=== PATIENT | male | born 1945 | race Caucasian/White ===

== ENCOUNTER 2018-08-06 23:03 | Inpatient (IN) ==
[2018-08-06] MEDS ORDERED: Amiodarone Premix 150 MG/100 ML BAG IVPB ONE ×2 (23:11→23:16)
[2018-08-06] MEDS ORDERED: Amiodarone Premix 360 MG/200 ML BAG IVC ONE ×2 (23:14→23:16)
--- NOTE | 2018-08-06 23:20 | Emergency Department Note ---
Disposition Clinical Impression: Ventricular tachycardia Chest pain Qualifiers: Chest pain type: unspecified Qualified Code(s): R07.9 - Chest pain, unspecified Disposition: Admitted As Inpatient Condition: Serious Chest Pain HPI - General Chief Complaint: ED Chest Pain Stated Complaint: possible stemi Time Seen by Provider: 08/06/18 23:12 Source: patient, EMS Limitations: no limitations Vital Signs Reviewed: Yes Nursing Notes Reviewed: Yes - History of Present Illness HPI Narrative: 72-year-old male presents to the emergency department by EMS with a complaint of chest tightness which started about a half hour prior to arrival in the emergency department. He states it is not really a pain it just feels tight. No increased shortness of breath. No diaphoresis. EMS reports when they picked him up his heart rate was about 185. Patient has a remote history of coronary artery disease and has had about 7 or 8 stents but his last stent was in 2006 and he has had no problems since then. He denies any history of atrial fibrillation or rapid or irregular heartbeat. No other complaints. Severity scale (1-10): 6 - Related Data Allergies Allergy/AdvReac Type Severity Reaction Status Date / Time No Known Allergies Allergy Verified 08/06/18 23:11 All systems ED: reviewed and negative except as stated. Constitutional: Denies: fever Cardiovascular: Reports: chest pain. Denies: palpitations, edema, syncope Respiratory: Denies: cough, dyspnea Gastrointestinal: Reports: nausea. Denies: abdominal pain, vomiting Musculoskeletal: Denies: back pain Neurological: Denies: headache, weakness, numbness, paresthesias Psychiatric: Denies: anxiety Hematological/Lymphatic: Denies: easy bleeding Chest Pain PMH - Past Medical History Medical history: Reports: hypertension Psychiatric history: Reports: no psych history - Social History Smoking Status: Current every day smoker Alcohol use: Reports: none Drug use: Reports: none Physical Exam - General Limitations: no limitations General appearance: alert, in no apparent distress - Head Head exam: atraumatic, normocephalic, normal inspection - Eye Eye exam: Present: normal appearance, PERRL, EOMI. Absent: scleral icterus, conjunctival injection - ENT ENT exam: normal exam, normal oropharynx, mucous membranes moist, TM's normal bilaterally - Neck Neck exam: Present: normal inspection, full ROM, trachea midline. Absent: tenderness, meningismus, lymphadenopathy - Chest Chest inspection: Present: normal inspection, symmetric chest wall rise. Absent : tenderness - Respiratory Respiratory exam: Present: normal lung sounds bilaterally. Absent: respiratory distress, wheezes - Cardiovascular Cardiovascular exam: Present: tachycardia - Abdominal Exam Abdominal exam: Present: soft, Non-Tender, normal bowel sounds - Extremities Exam Extremities exam: Present: normal inspection, full ROM. Absent: tenderness, pedal edema - Back Exam Back exam: Present: normal inspection. Absent: CVA tenderness (R), CVA tenderness (L) - Neurological Exam Neurological exam: Present: alert, oriented X3. Absent: motor sensory deficit - Psychiatric Psychiatric exam: Present: normal affect, normal mood - Skin Skin exam: Present: warm, dry, intact, normal color. Absent: cyanosis, diaphoresis Course Course Narrative: Patient is a 72-year-old male who presented to the emergency department with a complaint of chest tightness and was found to have a wide complex tachycardia with a heart rate of 185 on arrival here in the emergency department. It appears regular. Appears likely to be ventricular tachycardia. Patient was started on amiodarone 150 mg IV bolus followed by infusion. His heart rate improved only from 185-175 with this treatment. He then received adenosine 6 mg IV with no results whatsoever on the monitor. Decision was then made to cardiovert the patient as he is continuing to complain of some mild chest tightness. This is discussed with patient and family and he consented verbally. Patient received etomidate 12 mg IV and that now 50 g IV. He had good sedation and was defibrillated successfully with 1 shock at 200 J. After defibrillation his heart rate was in the 70s. He did continue to have some PVCs and was continued on the amiodarone infusion. Patient's chest discomfort was totally resolved after defibrillation. - Consultations Consultation #1: The hospitalist, Dr. Zuniga, was consulted and accepted admission of the patient to the ICU. Time: 00:47 Vital Signs Temperature 98.7 F 08/06/18 23:05 Pulse Rate 186 08/06/18 23:05 Respiratory Rate 24 08/06/18 23:05 Blood Pressure 125/92 08/06/18 23:05 O2 Sat by Pulse Oximetry 100 08/06/18 23:05 Temperature 97.1 F L 08/07/18 02:00 Pulse Rate 65 08/07/18 02:00 Respiratory Rate 24 08/07/18 02:00 Blood Pressure 139/94 08/07/18 02:00 O2 Sat by Pulse Oximetry 95 08/07/18 02:00 Oxygen Delivery Oxygen Delivery Room Air Chest Pain - Lab Data Lab results reviewed: Yes I reviewed the patient's lab results. Result diagrams: 08/06/18 23:10 08/06/18 23:10 Lab Results 08/06/18 08/06/18 08/06/18 Range/Units 23:10 23:10 23:10 WBC 11.3 H (4.3-11.1) K/mcL RBC 5.93 H (4.19-5.50) M/mcL Hgb 17.2 H (12.9-16.9) g/dL Hct 52.1 H (37.5-50.1) % MCV 87.9 (83.0-100.0) fL MCH 29.0 (28.0-33.3) pg MCHC 33.0 (31.6-35.5) g/dL RDW 14.6 H (11.5-14.5) % Plt Count 194 (140-400) K/mcL MPV 10.7 (9.4-12.4) fL Immature Gran % 0.2 (0-4) % Seg Neutrophils % 36.2 % Lymphocytes % 49.3 % Monocytes % 8.1 % Eosinophils % 5.3 % Basophils % 0.9 % Neutrophils # 4.1 (1.6-8.9) K/mcL Lymphocytes # 5.6 H (0.6-4.6) K/mcL Monocytes # 0.9 (0.0-1.3) K/mcL Eosinophils # 0.6 (0.0-0.6) K/mcL Basophils # 0.1 (0.0-0.2) K/mcL PT 11.6 (9.4-12.1) Seconds INR 1.0 APTT 35.7 (26.0-36.0) Seconds Sodium 142 (136-145) mEq/L Potassium 4.0 (3.5-5.1) mEq/L Chloride 107 (98-107) mEq/L Carbon Dioxide 25 (23-29) mEq/L BUN 15 (8-23) mg/dL Creatinine 1.18 (0.70-1.30) mg/dL Est GFR ( Amer) > 60 (> 60) Est GFR (Non-Af Amer) > 60 (> 60) BUN/Creatinine Ratio 13 (6-26) Glucose 137 H (70-105) mg/dL Calculated Osmolality 297 (280-300) Calcium 9.8 (8.6-10.3) mg/dL Magnesium (1.6-2.6) mg/dL Troponin I < 0.03 (< 0.04) ng/mL TSH 4.464 (0.340-5.600) mcIU/mL 08/06/18 Range/Units 23:10 WBC (4.3-11.1) K/mcL RBC (4.19-5.50) M/mcL Hgb (12.9-16.9) g/dL Hct (37.5-50.1) % MCV (83.0-100.0) fL MCH (28.0-33.3) pg MCHC (31.6-35.5) g/dL RDW (11.5-14.5) % Plt Count (140-400) K/mcL MPV (9.4-12.4) fL Immature Gran % (0-4) % Seg Neutrophils % % Lymphocytes % % Monocytes % % Eosinophils % % Basophils % % Neutrophils # (1.6-8.9) K/mcL Lymphocytes # (0.6-4.6) K/mcL Monocytes # (0.0-1.3) K/mcL Eosinophils # (0.0-0.6) K/mcL Basophils # (0.0-0.2) K/mcL PT (9.4-12.1) Seconds INR APTT (26.0-36.0) Seconds Sodium (136-145) mEq/L Potassium (3.5-5.1) mEq/L Chloride (98-107) mEq/L Carbon Dioxide (23-29) mEq/L BUN (8-23) mg/dL Creatinine (0.70-1.30) mg/dL Est GFR ( Amer) (> 60) Est GFR (Non-Af Amer) (> 60) BUN/Creatinine Ratio (6-26) Glucose (70-105) mg/dL Calculated Osmolality (280-300) Calcium (8.6-10.3) mg/dL Magnesium 2.1 (1.6-2.6) mg/dL Troponin I (< 0.04) ng/mL TSH (0.340-5.600) mcIU/mL - Radiology Data Radiology results reviewed: Yes I reviewed the patient's radiology results. Chest X-Ray 08/06/18 23:17 IMPRESSION: Prominence the interstitial markings. Correlation for interstitial edema or pneumonia is recommended. D/ / Dinah Shaffer Cha, MD / Dinah Shaffer Cha, MD Interpreting Provider: Dinah Shaffer Cha, MD - EKG Data EKG attestation: Yes I reviewed and interpreted this EKG. EKG results narrative: Wide-complex tachycardia with ventricular rate in the 180s. Unable to interpret otherwise. Critical Care Time Critical Care Time: Yes Total Critical Care Time: 90 Attestation: Critical care performed: Time is exclusive of separately billable procedures. Time includes: direct patient care, patient reassessment, coordination of patient care, interpretation of data (laboratory data, radiology data, and respiratory data), review of patient's medical records, medical consultation and documentation of patient care. Procedures included in critical care time: Procedures excluded from critical care time:
[2018-08-06 23:26] LABS: Basophils # 0.1 K/mcL (0.0-0.2); Basophils % 0.9 %; Eosinophils # 0.6 K/mcL (0.0-0.6); Eosinophils % 5.3 %; Hematocrit 52.1 % (37.5-50.1); Hemoglobin 17.2 g/dL (12.9-16.9); Immature Granulocytes % 0.2 % (0-4); Lymphocytes # 5.6 K/mcL (0.6-4.6); Lymphocytes % 49.3 %; Mean Corpuscular Volume 87.9 fL (83.0-100.0); Mean Platelet Volume 10.7 fL (9.4-12.4); Monocytes # 0.9 K/mcL (0.0-1.3); Monocytes % 8.1 %; Neutrophils # 4.1 K/mcL (1.6-8.9); Platelet Count 194 K/mcL (140-400); Red Blood Count 5.93 M/mcL (4.19-5.50); Red Cell Distribution Width 14.6 % (11.5-14.5); Segmented Neutrophils % 36.2 %
[2018-08-06 23:27] LABS: Prothrombin Time 11.6 Seconds (9.4-12.1)
[2018-08-06 23:30] LABS: Activated Partial Thrombo Time 35.7 Seconds (26.0-36.0)
[2018-08-06 23:40] LABS: BUN/Creatinine Ratio 13 (6-26); Blood Urea Nitrogen 15 mg/dL (8-23); Calcium 9.8 mg/dL (8.6-10.3); Carbon Dioxide 25 mEq/L (23-29); Chloride 107 mEq/L (98-107); Glucose 137 mg/dL (70-105); Osmolality,Calculated 297 (280-300); Sodium 142 mEq/L (136-145); eGFR For Non-African Americans > 60 (> 60)
[2018-08-06] MEDS ORDERED: *HR* Adenosine 6 MG/2 ML VIAL IVP ONE ×2 (23:40→23:54)
[2018-08-06 23:41] LABS: Troponin I < 0.03 ng/mL (< 0.04)
[2018-08-06 23:55] LABS: Thyroid Stimulating Hormone 4.464 mcIU/mL (0.340-5.600)
[2018-08-06] MEDS ORDERED: *HR* FentaNYL (PF) 100 MCG/2 ML VIAL IVP ONE (23:59)
[2018-08-06] MEDS ORDERED: *HR* Etomidate 20 MG/10 ML AMPUL IVP ONE (23:59)
[2018-08-07] MEDS ORDERED: Ondansetron 4 MG/2 ML VIAL ONE (00:24)
[2018-08-07] MEDS ORDERED: Ondansetron 4 MG/2 ML VIAL IVP ONE (00:27)
--- NOTE | 2018-08-07 02:24 | Internal Med History&Physical ---
Addendum entered and electronically signed by Yonatan Morton DO 08/07/18 06: 10: Addendum to CAD Patient's second troponin came back 1.75. I got an EKG which did not demonstrate any significant ischemic changes at this time although there is some ST-T wave flattening as compared to previous in leads 2 and 3. Spoke to dispatcher radio loan services professional, Dr. Cifuentes, who states that the patient will need an ischemic workup. He recommends the patient be started on heparin and receive a beta brando. I did mention that the patient is bradycardic at present with a heart rate of 59 and has remained relatively bradycardic with heart rates between 50 and 60. He said that low-dose Toprol-XL at 12.5 mg would be the most appropriate option in this situation. I ordered for the patient immediate aspirin, heparin, beta brando. Patient will be seen by cardiology for likely left heart catheterization today. Original Note: <Yonatan Morton - Last Filed: 08/07/18 03:48> Date of Encounter: 08/07/18 Time of Encounter: 02:24 Internal Medicine - H&P: HPI Chief complaint: Chest pain Admitted From: Emergency Dept Plans for Post Hospital Care: Home History of present illness: Mr. Nj is a 72 year old male with history of CAD status post for [place] is and 8 stents, last PCI in 2006, PAD status post bilateral lower extremity bypass grafts and hypertension presented to the emergency room with 30 minutes history of chest tightness. The patient said that this was chest tightness which started approximately 30 minutes prior to arrival at the ED, and it was not really necessarily a pain, however it was tightness which radiated towards his back. It was most closely related to a similar experience he had in 2006 which turned out to be a heart attack requiring stents. He did have associated palpitations, however no diaphoresis or shortness of breath associated with this. He also denied any nausea or vomiting. His did note that he had a coughing fit earlier in the evening by approximately 3 hours, which he agreed to. He does say that this happen, however it was not associated with any production of phlegm, and said felt like he had in itch or scratch in his throat. This has since stopped. He did not take anything for this, but instead just came straight to the hospital. In the emergency department it was noted that he had a wide complex tachycardia with a rate of greater than 180 which was resistant to adenosine. He did undergo significant cardioversion which resulted in return to normal sinus rhythm, and he was placed on an amiodarone drip before being transferred to the ICU for further workup and observation. Past Med Surg Social Fam HX - Past Medical History Medical history: hypertension Additional medical history: Pt very poor historian. STates "I take 9 pills a day , but I don't know what they are for" Psychiatric history: no psych history - Past Surgical History Additional surgical history: 9 heart stents - Social History Smoking Status: Current every day smoker Smokeless Tobacco Status: No Alcohol use: none Drug use: none Internal Medicine - H&P: Meds 3 Allergy/AdvReac Type Severity Reaction Status Date / Time No Known Allergies Allergy Verified 08/06/18 23:11 All Systems PM: A 10-system review of systems was performed and is negative for pertinent findings except as documented above in the HPI. Review of systems: Constitutional: Denies fevers, chills, weight loss, generalized fatigue Head/Neck: Denies GARCIA, neck stiffness EENT: Denies vision changes/blurriness, rhinorrhea, congestion, sore throat CVS: Admits to chest tightness with radiation to the back and palpitations with rapid heart rate. Denies SAN, orthopnea, edema, PND Pulm: Denies SOB, sputum, hemoptysis, wheezing. Admits to cough GI: Denies abdominal pain, nausea, vomiting, diarrhea, constipation, melena, hematemasis : Denies dysuria, increased frequency, urgency, hematuria Heme: Denies ease of bleeding or bruising MSK: Denies joint pain, limited ROM Skin: Denies rashes, ulcers, color changes Neuro: Denies GARCIA, paresthesias, focal deficits, ataxia - Constitutional Vitals: Temp Pulse Resp BP Pulse Ox 97.1 F L 65 24 139/94 95 08/07/18 02:00 08/07/18 02:00 08/07/18 02:00 08/07/18 02:00 08/07/18 02:00 Exam: Gen: Vitals noted. No acute distress. HEENT: Normocephalic, atraumatic Neck: Supple. No adenopathy. Chest: Incision scar is present on abdomen from cholecystectomy and previous abdominal surgery Cardiac: RRR, no murmur, +S1/S2 Pulmonary: CTA bilaterally, no wheezes, rales or rhonchi, equal chest expansion Abdomen: soft, nontender, no guarding Back: Nontender throughout. MSK: ROM intact, no joint swelling noted Extremities: no BLE edema, nontender calf, no cyanosis or clubbing Neuro: moves all extremities, no focal deficits. A&Ox3 Psych: Appropriate mood and behavior Internal Med - H&P Results - Labs CBC & Chem 7: 08/06/18 23:10 08/06/18 23:10 - Assessment and plan (1) Ventricular tachycardia Current Visit: Yes Status: Acute Assessment and plan: Ventricular tachycardia, resolved status post cardioversion Patient presented with unstable V. tach, currently stable on amiodarone Instigating cause is unclear at this time Chest x-ray demonstrates possible interstitial edema, however appear similar to previous exam He does have significant history of CAD and multiple cardiac risk factors Plan -Observe in the ICU on residential monitor -Continue amiodarone drip -Echocardiogram in the morning -Trend troponins, repeat electrolytes -Consult cardiology in the morning (2) CAD (coronary artery disease) Current Visit: Yes Status: Chronic Assessment and plan: Coronary artery disease, status post 7 stents Last stent was in 2006 according to patient Currently he is unaware of his medication list, did not bring it with him He is not having active chest pain, troponin is negative EKG following V. tach resolution does not show acute ischemic changes I will order aspirin at this time, await patient to bring in medication list Continue to trend troponins and continue cardiac monitoring Qualifiers: Coronary Disease-Associated Artery/Lesion type: [place] artery [place] vs. transplanted heart: [place] heart Associated angina: without angina Qualified Code(s): I25.10 - Atherosclerotic heart disease of [place] coronary artery without angina pectoris (3) PAD (peripheral artery disease) Current Visit: No Status: Chronic Assessment and plan: History of PAD post bilateral bypass grafts (4) HTN (hypertension) Current Visit: Yes Status: Acute Assessment and plan: Blood pressure has been well controlled, and borderline hypotensive We will hold any home antihypertensive medications as able Qualifiers: Hypertension type: essential hypertension Qualified Code(s): I10 - Essential (primary) hypertension (5) Tobacco abuse Current Visit: Yes Status: Acute Assessment and plan: We will hold nicotine patches as the patient did have cardiac event on this admission (6) DVT prophylaxis Current Visit: Yes Status: Acute Assessment and plan: SQ Heparin - Time Spent With Patient Total time spent is greater than 50% in coordination of care (as documented) at patient's floor/unit and/or counseling patient: <Lucretia Antunez - Last Filed: 08/07/18 07:38> Date of Encounter: 08/07/18 Internal Medicine - H&P: HPI History of present illness: Mr. Nj is a 72 year old male All Systems PM: A 10-system review of systems was performed and is negative for pertinent findings except as documented above in the HPI. - Constitutional Vitals: Temp Pulse Resp BP Pulse Ox 97.1 F L 55 12 117/71 95 08/07/18 02:00 08/07/18 06:00 08/07/18 06:00 08/07/18 06:00 08/07/18 06:00 Internal Med - H&P Results - Labs CBC & Chem 7: 08/07/18 06:44 08/07/18 05:05 Labs: Short CBC 08/07/18 Range/Units 06:44 WBC 12.3 H (4.3-11.1) K/mcL Hgb 14.3 D (12.9-16.9) g/dL Hct 42.6 (37.5-50.1) % Plt Count 167 (140-400) K/mcL Neutrophils # 6.3 (1.6-8.9) K/mcL BMP 08/07/18 05:05 Sodium 139 Potassium 4.2 Chloride 111 H Carbon Dioxide 21 L BUN 14 Creatinine 0.88 Glucose 139 H Calcium 8.7 Cardiac Enzymes 08/07/18 Range/Units 05:05 Troponin I 1.75 H* (< 0.04) ng/mL - Assessment and plan (1) Ventricular tachycardia Current Visit: Yes Status: Acute (2) CAD (coronary artery disease) Current Visit: Yes Status: Chronic Qualifiers: Coronary Disease-Associated Artery/Lesion type: [place] artery [place] vs. transplanted heart: [place] heart Associated angina: without angina Qualified Code(s): I25.10 - Atherosclerotic heart disease of [place] coronary artery without angina pectoris (3) PAD (peripheral artery disease) Current Visit: No Status: Chronic (4) Tobacco abuse Current Visit: Yes Status: Acute (5) HTN (hypertension) Current Visit: Yes Status: Acute Qualifiers: Hypertension type: essential hypertension Qualified Code(s): I10 - Essential (primary) hypertension (6) DVT prophylaxis Current Visit: Yes Status: Acute - Time Spent With Patient Total time spent is greater than 50% in coordination of care (as documented) at patient's floor/unit and/or counseling patient: - Attending Attestation Patient seen and examined. Chart including laboratory results and EKG were reviewed. Case discussed with resident. Agree with assessment and plan. Patient currently stable after cardioversion. No further episodes of chest pain or hemodynamic instability. No further events from a cardiac standpoint. Case discussed with cardiology and was informed of current events up to this point including most recent elevation in troponin. Cardiology recommends treating as if ACS including starting low-dose beta blockers. Cardiology informed of patient's bradycardia. Nonetheless they are recommending starting low-dose beta brando. Plan for possible catheter lab later today.
[2018-08-07] MEDS ORDERED: Naloxone 0.4 MG/ML INJ IVP PRN ×3 (03:43→20:57)
[2018-08-07] MEDS ORDERED: OXYCODONE Oral CONC 10 MG/0.5 ML ORAL.SYG SL PRN ×4 (03:43→20:57)
[2018-08-07] MEDS ORDERED: Ondansetron 4 MG/2 ML VIAL IVP PRN ×2 (03:43→20:57)
[2018-08-07] MEDS: Amiodarone Premix 360 MG/200 ML BAG IVC SCH ×2 (04:47→16:15)
[2018-08-07 05:32] LABS: INR 1.1
[2018-08-07 05:35] LABS: BUN/Creatinine Ratio 16 (6-26); Blood Urea Nitrogen 14 mg/dL (8-23); Calcium 8.7 mg/dL (8.6-10.3); Carbon Dioxide 21 mEq/L (23-29); Chloride 111 mEq/L (98-107); Glucose 139 mg/dL (70-105); Osmolality,Calculated 291 (280-300); Potassium 4.2 mEq/L (3.5-5.1); Sodium 139 mEq/L (136-145); eGFR For Non-African Americans > 60 (> 60)
[2018-08-07 05:39] LABS: Troponin I 1.75 ng/mL (< 0.04)
[2018-08-07] MEDS ORDERED: Aspirin 325 MG TABLET PO ONE (05:59)
[2018-08-07] MEDS ORDERED: *HR* Heparin 5,000 UNIT/ML VIAL IVP PRN ×4 (06:08→20:57)
[2018-08-07] MEDS ORDERED: *HR* Heparin 5,000 UNIT/ML VIAL IVP ONE (06:08)
[2018-08-07] MEDS ORDERED: Heparin 25,000 UNIT/500 ML D5W 25,000 UNIT/500 ML BAG IVC SCH (06:15)
[2018-08-07] MEDS ORDERED: Perflutren Lipid Microsphere 1.3 ML in 0.9 % Sodium Chloride 8.7 ML IVP ONE (07:03)
[2018-08-07 07:15] LABS: Basophils # 0.1 K/mcL (0.0-0.2); Basophils % 0.7 %; Eosinophils # 0.5 K/mcL (0.0-0.6); Eosinophils % 4.3 %; Hematocrit 42.6 % (37.5-50.1); Hemoglobin 14.3 g/dL (12.9-16.9); Immature Granulocytes % 0.3 % (0-4); Lymphocytes # 4.2 K/mcL (0.6-4.6); Mean Corpuscular HGB Conc 33.6 g/dL (31.6-35.5); Mean Corpuscular Hemoglobin 29.2 pg (28.0-33.3); Mean Corpuscular Volume 87.1 fL (83.0-100.0); Mean Platelet Volume 10.7 fL (9.4-12.4); Monocytes # 1.1 K/mcL (0.0-1.3); Neutrophils # 6.3 K/mcL (1.6-8.9); Platelet Count 167 K/mcL (140-400); Red Blood Count 4.89 M/mcL (4.19-5.50); Red Cell Distribution Width 14.9 % (11.5-14.5); Segmented Neutrophils % 51.7 %
[2018-08-07] MEDS ORDERED: Adenosine 90 MG/30 ML MLS IV ONE (07:39)
[2018-08-07] MEDS ORDERED: Aspirin 81 MG TAB.CHEW PO SCH (09:00)
[2018-08-07] MEDS ORDERED: Metoprolol XL (24 HR) Succ 25 MG TAB.ER.24H PO SCH (09:00)
--- NOTE | 2018-08-07 09:47 | Electrocardiograph Report ---
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
--- NOTE | 2018-08-07 09:48 | Electrocardiograph Report ---
[address] [place], [place] [address] Test Date: 2018-08-07 Pat Name: Leonard Nj Department: [id number] Room: 10 Gender: Search Engine Optimization Strategist: : 1945 Requested By: Yonatan Morton Order Number: [id number] Reading MD: Genaro Cifuentes Measurements Intervals [place] Rate: 75 P: 41 DE: 140 QRS: 50 QRSD: 123 T: -58 QT: 419 QTc: 468 Interpretive Statements Sinus rhythm Multiple ventricular premature complexes Nonspecific intraventricular conduction delay Inferior infarct, age indeterminate Possible septal infarct, old Electronically Signed On 08-07-2018 9:46:40 EDT by Genaro Cifuentes
--- NOTE | 2018-08-07 10:19 | Event Note ---
Date of Encounter: 08/07/18 Time of Encounter: 10:20 Seen and assessed. Pt came in for chest tightness and had V tach s/p cardioversion . Currently on amiodarone drip Also has NSTEMI and elevated troponins. Cardiology plan for cath. Will follow
--- NOTE | 2018-08-07 10:22 | Cardiology Consult Note ---
<Earline Pedraza - Last Filed: 08/07/18 12:19> Date of Encounter: 08/07/18 Time of Encounter: 08:30 Assessment and Plan (1) Ventricular tachycardia Current Visit: Yes Status: Resolved Wide complex tachycardia upon ED arrival, resolved s/p cardioversion Currently sinus rhythm with rate 55-65 Likely instigated by NSTEMI. TSH within normal limits, 4.464. Continue monitoring in ICU and cardiac monitoring. Electrolytes within normal limits, continue to monitor. Continue with amiodarone drip. Echocardiogram results pending. Plan for coronary catheterization today. (2) NSTEMI (non-ST elevated myocardial infarction) Current Visit: Yes Status: Acute Troponin trending up (1.75 and repeat 2.66). Continue serial troponin Repeat EKG with new ST-T wave flattening in leads 2 and 3 compared to previous. Significant history of CAD and 9 stent placements. Last PCI in 2006 Continue with heparin drip, aspirin Continue Troprol XL 12.5mg qd Plan for cardiac catheterization today. Keep patient NPO. (3) CAD (coronary artery disease) Current Visit: Yes Status: Chronic Last PCI in 2006. No active chest pain. Elevated troponin, plan as above. Qualifiers: Coronary Disease-Associated Artery/Lesion type: [place] artery [place] vs. transplanted heart: [place] heart Associated angina: without angina Qualified Code(s): I25.10 - Atherosclerotic heart disease of [place] coronary artery without angina pectoris (4) PAD (peripheral artery disease) Current Visit: No Status: Chronic S/p bilateral bypass grafts, bilateral femoral arteries. Last surgery in 2008. (5) HTN (hypertension) Current Visit: Yes Status: Acute Blood pressures controlled. Home antihypertensive medications on hold at this time. Qualifiers: Hypertension type: essential hypertension Qualified Code(s): I10 - Essential (primary) hypertension (6) Tobacco abuse Current Visit: Yes Status: Acute Smokes 1/3 pack per day. Smoking cessation counseled. (7) DVT prophylaxis Current Visit: Yes Status: Acute On heparin. Discussion w patient/family: The assessment and plan as outlined above was discussed with the patient and/or family members who expressed understanding and agreement. All questions were answered. Thank you for involving us in the care of your patient. Please call with any questions. History of Present Illness Consult date: 08/07/18 Requesting physician: Yonatan Morton Consult reason: wide complex tachycardia, required cardioversion, on amiodarone. Hx of CAD Chief complaint: Chest pain History of present illness: Mr. Nj is a 72 year old male with past medical history including CAD status post 9 stent placements, last PCI in 2006, peripheral arterial disease s/p bilateral lower extremity bypass grafts, hypertension, who presented overnight with chief complaint of chest pain onset thirty minutes prior to arrival. Describes the pain as if someone hit him across the chest. It suddenly occurred while watching TV in bed and complains of lightheadedness and palpitations, no shortness of breath, or nausea. Pain did not radiate into his extremities. No diaphoresis. In the ER, patient was found to have a wide complex tachycardia with heart rate 185. He was given amiodarone 150mg IV bolus followed by an infusion. Heart rate improved to 175 and he was given adenosine 6mg IV. Patient was then cardioverted at 200 joules with return to sinus rhythm and heart rate in the 70's. Amiodarone infusion was continued. Initial troponin was 0.03 and six hour troponin 1.75. There was some EKG changes with ST-T wave flattening in lead 2 and 3 and the hospitalist contacted Dr. Cifuentes. Patient was started on heparin drip and Toprol XL 12.5mg daily. Cardiology was consulted for wide complex tachycardia requiring cardioversion and elevated troponin. This morning , the patient states he is doing well and has no complaints. He denies any chest pain since receiving the cardioversion. Denies palpitations, shortness of breath, nausea, weakness, lower extremity swelling, diaphoresis. Of note, per the patient appears to have been "slowing down" the past couple of months. This past weekend he was only able to trim a couple of branches on a hansen and would have to sit down to rest. He has been having less energy and increasing shortness of breath with activity. Past Med Surg Social Fam HX - Past Medical History Medical history: hypertension Additional medical history: Pt very poor historian. STates "I take 9 pills a day , but I don't know what they are for" Psychiatric history: no psych history - Past Surgical History Additional surgical history: 9 heart stents - Social History Smoking Status: Current every day smoker Smokeless Tobacco Status: No Alcohol use: none Drug use: none Medications and Allergies 3 Allergy/AdvReac Type Severity Reaction Status Date / Time No Known Allergies Allergy Verified 08/06/18 23:11 All Systems Review: The remainder of the systems were reviewed and are negative - Constitutional Constitutional: no fatigue, no fever(s), no headache(s), no lethargy - EENT Eyes: no blurred vision, no loss of vision Nose, mouth and throat: no dysphagia, no sore throat - Cardiovascular Cardiovascular: chest pain at rest, palpitations, no leg edema - Respiratory Respiratory: no cough, no dyspnea - Gastrointestinal Gastrointestinal: no abdominal pain, no diarrhea, no nausea - Genitourinary Genitourinary: no dysuria - Musculoskeletal Musculoskeletal: no muscle weakness - Integumentary Integumentary: no rash - Neurological Neurological: no dizziness, no numbness, no tingling Physical Examination Vital Signs, Last 4 Hours Temp Pulse Resp BP Pulse Ox 08/07/18 09:00 56 22 118/69 95 08/07/18 08:00 56 20 116/73 96 08/07/18 07:10 97.3 F L General: Conversant, No Apparent Distress HEENT: Atraumatic, Normocephaly, Mucus Membranes Moist Neck: No JVD Cardiac: Reg Rate and Rhythm, Normal S1 and S2, No Murmur, Other Lungs: Normal Breath Sounds, No Wheeze, Rales, Rhonchi Neuro: Alert and responsive, No focal deficits noted Abdomen: Soft, Non-Tender Skin: No rashes noted on visualized skin Musculoskeletal: No Chest Wall Tenderness Extremities: No Cyanosis, No Edema, Normal Pulses (Bilateral radial pulses equal ) Results 08/07/18 06:44 08/07/18 05:05 Lab Results 08/07/18 08/07/18 08/07/18 05:05 05:05 06:44 WBC 12.3 H Hgb 14.3 D Hct 42.6 Plt Count 167 INR 1.1 Sodium 139 Potassium 4.2 Chloride 111 H Carbon Dioxide 21 L BUN 14 Creatinine 0.88 Glucose 139 H Calcium 8.7 Troponin I 1.75 H* - Imaging and Cardiology Chest Xray: report reviewed, image reviewed Echo: pending Cardiac cath: pending - EKG Interpretation EKG results cardiology: personally reviewed (EKG on 08/06/2018 at 23:08 reviewed shows wide complex tachycardia with heart rate 186 beats per minute. WV interval 80, QT interval 290.) Consult Discharge Plan - Plan Referrals: [facility],PCP [Primary Care Provider] - <Karsten Malave - Last Filed: 08/07/18 20:38> Date of Encounter: 08/07/18 Time of Encounter: 10:00 - Attending Attestation I examined this patient and my medical decision-making was reviewed with the Resident Physician. I agree with the documented findings, disposition and treatment plan as described except to the extent set forth below. CC: Chest pain HPI: Pt complains of sudden onset severe8/10 mid epigastric chest pain, associated with palpitations and shortness of breath. He was found to be in wide complex tachycardia in the ER, tx with amiodarone with some slowing, but continued, no response to IV adenosine, underwent successful DC cardioversion with conversion to NSR, sinus tach. Chest pain resolved following cardioversion , has not reoccurred. He notes several months of increasing fatique, less exercise tolerance and more pronounced shortness of breath. He has been following with primary care at the [facility], has not had ischemic evaluation or cardiology consult for over six years. PMH: reviewed ROS: reviewed PE: pt seen and examined, agree with findings as documented. IMP/plan: 1. Ventricular tachycardia: conversion to NSR/sinus tach following amiodarone load and DC cardioversion, continue IV amiodarone for now until coronary anatomy is defined 2. NSTEMI: Elevation of troponins and new VT consistent with acute coronary syndrome, discussed at length with pt and at bedside, recommend LHC possible, risks and benefits discussed, agrees to proceed, further recommendations pending LHC results. 3. CAD: known single vessel disease, post PCi unknown vessel in 2007, old records requested. 4. PVD; status post bilat femoral grafts. pt unaware of origin and insertion, notes claudication resolved post surgical intervention, has not had follow up 5. Tobacco abuse: discussed smoking cessation, pt will consider at discharge. Assessment and Plan Discussion w patient/family: The assessment and plan as outlined above was discussed with the patient and/or family members who expressed understanding and agreement. All questions were answered. Thank you for involving us in the care of your patient. Please call with any questions. History of Present Illness History of present illness: Mr. Nj is a 72 year old male All Systems Review: The remainder of the systems were reviewed and are negative Physical Examination Vital Signs, Last 4 Hours Temp Pulse Resp BP Pulse Ox 08/07/18 18:50 97.8 F 67 20 122/79 92 08/07/18 17:00 62 22 124/73 92 08/07/18 16:49 98.7 F Results 08/07/18 06:44 08/07/18 05:05 Lab Results 08/07/18 08/07/18 08/07/18 05:05 05:05 06:44 WBC 12.3 H Hgb 14.3 D Hct 42.6 Plt Count 167 INR 1.1 Sodium 139 Potassium 4.2 Chloride 111 H Carbon Dioxide 21 L BUN 14 Creatinine 0.88 Glucose 139 H Calcium 8.7 Troponin I 1.75 H* 08/07/18 10:38 WBC Hgb Hct Plt Count INR Sodium Potassium Chloride Carbon Dioxide BUN Creatinine Glucose Calcium Troponin I 2.66 H*
[2018-08-07] MEDS ORDERED: ISOVUE-370 200 ML INFUS..BTL IV ONE ×2 (12:44→14:07)
[2018-08-07] MEDS ORDERED: Nitroglycerin 1,000 MCG/10 ML VIAL IV ONE (12:44)
[2018-08-07] MEDS ORDERED: *HR* Heparin 10,000 UNIT/10 ML VIAL ONE (12:44)
[2018-08-07] MEDS ORDERED: Heparin 1,000 UNITS/500 mL 500 ML ONE (12:44)
[2018-08-07] MEDS ORDERED: 0.9 % Sodium Chloride 1,000 ML ONE ×2 (12:44→13:28)
--- NOTE | 2018-08-07 13:17 | Pre-Sedation Evaluation ---
Pre-sedation evaluation - Pre-sedation checklist Date of procedure: 08/07/18 Procedure: [facility] Recent Vitals: Last Vital Signs Temp 97.3 F L 08/07/18 07:10 Pulse 85 08/07/18 12:00 Resp 22 08/07/18 12:00 BP 137/91 08/07/18 12:00 Pulse Ox 96 08/07/18 12:00 H&P (including ROS) documented in medical record: Yes Previous reaction to sedatives/anesthetics: No Dietary Status: NPO after Midnight Airway Assessment: Patient can open mouth completely, TMJ function normal Dentition: No loose teeth or bridges ASA Classification *see protocol: CLASS II-Mild systemic disease Plan of Care: Pt appropriate candidate for procedure/moderate/conscious sedation , Risks/benefits of procedure/sedation discussed w/ patient/family Cardiac Registry (Cardio Only) - Functional Capacity Functional Capacity: >=4 METS with symptoms - Clincal Frailty Scale Clinical Frailty Scale: Managing Well
[2018-08-07] MEDS ORDERED: *HR* FentaNYL (PF) 100 MCG/2 ML VIAL ONE (13:28)
[2018-08-07] MEDS ORDERED: *HR* Midazolam HCl 2 MG/2 ML VIAL ONE ×2 (13:28→13:46)
[2018-08-07] MEDS ORDERED: Verapamil 5 MG/2 ML VIAL ONE (13:43)
--- NOTE | 2018-08-07 14:29 | Event Note ---
Date of Encounter: 08/07/18 Time of Encounter: 14:30 - Cardiology Event Note [facility] prelim for mild NSTEMI RCA distal PDA diffusely diseased and small, right to left collaterals to LCx/OM Left main 40-50% stenosis - FFR negative. Diagonal - 60% FFR negative. LAD 50 % FFR negative. LCx - 100% proximal small vessel ipsilateral and contralateral collaterals EF global HK 25-30% of uncertain chronicity Consult EP for ICD versus Lifevest, obtain previous cardiac records (?[place] / [place])
--- NOTE | 2018-08-07 14:34 | Invasive Diagnostic Lab Proc ---
Name: Leonard Nj Date of Study: 08/07/2018 Date: 1945 Ht: 68.0in Medical Record#: [id number] Age: 72 Wt: 182.32lb Gender: Male BSA: 1.96 Order #: [id number] BMI: 27.73 Physicians Procedure Physician: Jose Carlos Hook MD, [facility] Referring MD: Referring MD: Staff Name Position Time In Fabio Echols RT (R) Monitor 01:24 PM Pradip Aguilar RN Construction Supervisor/Carpenter 01:24 PM Aminata Echols RT (R) Scrub 01:24 PM Indications Indication Non-Stemi Procedures Performed Procedure L HRT ARTERY/VENTRICLE ANGIO IV Doppler BLD Flow 1st Vessel IV Doppler BLD Flow Ad'l Vessel Pre-Procedure Checklist Informed consent is complete signed and on chart. H&P is on chart. ID band is on and ID verified with patient. Patient NPO for procedure The procedure was described for the patient and questions were answered. Blood Pressure: 136/76 ECG is on chart. Rhythm: NSR Plan of Care Patient will tolerate the procedure without complications. Adequate level of comfort will be maintained. Hemodynamics will remain stable Patient will recover from procedure without complications. Respiratory function will be maintained. Cardiac rhythm will remain stable. Patient temperature will be maintained. Patient and/or family have verbalized understanding of the procedure. Patient Education Chief Complaint/Reason for Test: Cardiac Cath Developmental Category: Geriatric (65+ years) Developmentally Appropriate for Age: Yes Learning Barriers: None Education Needs: Procedure Education Method: Verbal Information Taught: Cardiac Cath Educational Evaluation: Able to repeat information Intravenous Access Time IV Size Location DC'd Fluid/Drip Rate Units RN 01:27 PM 18g 1 1/4" Patent On Arrival Rt Antecubital 0.9NaCl 25 ml/hr Pradip Aguilar RN 01:28 PM 18g 1 1/4" Patent On Arrival Lt Antecubital Allergies No Known Allergies Vital Signs Time BP (mmHg) HR (bpm) O2 Sat. RR (bpm) LOC 01:24 PM 136 / 76 68 93 % 25 5 = Fully awake and oriented or at pre-proc level 01:24 PM / % 4 = Oriented but drowsy 01:39 PM / % 4 = Oriented but drowsy 01:54 PM / % 4 = Oriented but drowsy 01:34 PM 136 / 76 70 92 % 18 01:39 PM 134 / 72 71 92 % 23 01:44 PM 132 / 75 88 93 % 16 01:49 PM 120 / 66 67 90 % 16 01:54 PM 109 / 68 62 88 % 15 01:59 PM 106 / 61 61 90 % 14 02:04 PM 106 / 62 65 90 % 27 02:09 PM 107 / 68 65 92 % 24 02:14 PM 115 / 67 65 91 % 24 02:19 PM 112 / 71 60 91 % 02:09 PM / % 5 = Fully awake and oriented or at pre-proc level Procedural Medications Time Medication Dose Units Method Given By 01:26 PM Amiodarone 0.5 mg/min Intravenous 01:27 PM Oxygen 2 L/min nasal cannula Pradip Aguilar RN 01:37 PM Versed 2 mg Intravenous Pradip Aguilar RN 01:37 PM Fentanyl 50 mcg Intravenous Pradip Aguilar RN 01:45 PM Lidocaine 2% 0.5 ml Subcutaneous Jose Carlos Hook MD, FAC 01:47 PM Heparin 2000 units Nitroglycerin 200 mcg Verapamil 2.5 mg Intraarterial Jose Carlos Hook MD, FACC 02:04 PM Nitroglycerin 200 mcg Intracoronary Jose Carlos Hook MD 02:04 PM 90mg Adenosine in 90 ml 0.9 NS 697 mcg Intravenous Pradip Aguilar RN ASA Classification: CLASS II- Mild systemic disease (i.e. well-controlled diabetes, hypertension, asthma, cigarette smoking) Lavonne Score Preprocedure Postprocedure Activity 2- Moves 4 extremities sustained head lift Activity 2- Moves 4 extremities sustained head lift Circulation 2- SBP +/= 20 points of pre-anesthetic level Circulation 2- SBP +/= 20 points of pre-anesthetic level Consciousness 2- Awake and alert oriented x 3 Consciousness 2- Awake and alert oriented x 3 O2 Saturation 2- Able to maintain O2 satruation of 92% on room air O2 Saturation 1- Needs O2 inhalation to maintain O2 saturation of 90% Respiratory 2- Able to deep breathe and cough well Respiratory 2- Able to deep breathe and cough well Total Score 10 Total Score 9 Contrast Agent: Isovue Diagnostic Contrast: 121 ml Total Contrast: 121 ml Fluoro Dose: 49 mGy Procedure Log Time Note Enter By 01:23 PM CathStat 01:24 PM Pt arrived to farm labor contractor 1 at 13:24 [email or web address] 01:24 PM Patient charges- Angio tray pack, Navilyst 3mm J, Pulse Oximetry and ACIST tubing and transducer PM Case Delayed No PM Time: : Patient comfortable and pain free: Yes PM Time: :LOC: 5 = Fully awake and oriented or at pre-proc level PM Fabio Echols RT (R) Position: Monitor Time in: PM Pradip Aguilar RN Position: Construction Supervisor/Carpenter Time in: PM Aminata Echols RT (R) Position: Scrub Time in: PM Clinical Presentation: Non-STEMI PM Patient arrived at : with Amiodarone Intravenous drip @ 0.5 mg/min PM Physician arrived PM Meet and greet completed PM Sign in performed according to hospital policy. Informed consent was obtained. PM Procedure start PM Time: Oxygen on at 2 L/min per nasal cannula by Pradip Aguilar RN : PM Vitals capture started with the following parameters, Patient=Adult, Interval=5 min, Initial Dmummeea=745 mmHg, Deflation Rate=3 mmHg, Cuff placed on Right Arm :34 PM HR=70 bpm, YFVY=098/76 mmhg, SpO2=92.0 %, Resp=18 B/min :36 PM Recorded ECG: HR=70 Condition=Condition 1 :36 PM ASA Class CLASS II- Mild systemic disease (i.e. well-controlled diabetes, hypertension, asthma, cigarette smoking) 36 PM Hair removed from procedure site in procedure lab using clippers. Bilateral groin prepped with Chloraprep by Fabio Echols RT (R), then patient was draped. Skin intact. :37 PM Hair removed from procedure site in procedure lab using clippers. Right wrist prepped with Chloraprep by Fabio Echols RT (R), then patient was draped. Skin intact. PM Time: 13:37 Versed 2 mg Intravenous Given by Pradip Aguilar RN [email or web address] 01:37 PM Time: 13:37 Fentanyl 50 mcg Intravenous Given by Pradip Aguilar RN :39 PM Time: 13:24 Patient comfortable and pain free: Yes [email or web address] :39 PM Time: 13:24LOC: 4 = Oriented but drowsy [email or web address] 01:39 PM HR=71 bpm, NXOV=429/72 mmhg, SpO2=92.0 %, Resp=23 B/min 01:42 PM Pressure channel 1 zero failed. 01:42 PM Pressure channel 1 zeroed. 01:44 PM HR=88 bpm, OYHP=073/75 mmhg, SpO2=93.0 %, Resp=16 B/min 01:45 PM Time out was performed according to hospital policy. Conscious sedation and anesthesia was achieved (see medication log with in this report above) [email or web address] 01:46 PM Time: 13:45 0.5 ml Lidocaine 2% to right radial Subcutaneous Given by Jose Carlos oHok MD, FAC [email or web address] 01:47 PM Access obtained by percutaneous puncture. 6Fr 10cm Terumo Glidesheath sheath placed in right Radial artery. [id number] [email or web address] :47 PM Time: 13:47 Patient given 2,000 units Heparin, 200 mcg Nitroglycerin, and 2.5 mg Verapamil Intraarterial by Jose Carlos Hook MD, [facility]. This is given to reduce risk of vessel spasm and thrombosis. [email or web address] :47 PM 0.035 260cm Navilyst 3mmJ wire [id number] [email or web address] 01:47 PM 5Fr TIG catheter inserted over the wire [facility] [email or web address] 01:49 PM RCA angiography performed in multiple views. [email or web address] 01:49 PM Recorded Pressure: Ao, HR=69, Condition=Condition 1 (Aorta) Ao 104/56/76 01:49 PM Coronary Dominance: right [email or web address] 01:49 PM HR=67 bpm, CEEM=621/66 mmhg, SpO2=90.0 %, Resp=16 B/min 01:51 PM Lesion found in Distal RCA. Pre Stenosis: 50 Pre GLENYS Flow: [email or web address] 01:51 PM Right Coronary, Right Posterior Descending Arteries with Right Posterolateral and Acute Marginal branches with 50 % stenosis. If graft is supplying this area, 0 % stenosis [email or web address] 01:51 PM LCA angiography performed in multiple views. [email or web address] 01:51 PM Lesion found in Right PDA. Pre Stenosis: 75 Pre GLENYS Flow: [email or web address] 01:51 PM Right Coronary, Right Posterior Descending Arteries with Right Posterolateral and Acute Marginal branches with 70 % stenosis. If graft is supplying this area, 0 % stenosis [email or web address] 01:51 PM Recorded Pressure: Ao, HR=80, Condition=Condition 1 (Aorta) Ao 84/49/64 01:52 PM Lesion found in Mid LAD. Pre Stenosis: 30 Pre GLENYS Flow: [email or web address] 01:52 PM Mid/Distal Left Anterior Descending Coronary Artery and diagonal branches with 30% stenosis. If graft is supplying this area, 0 % stenosis [email or web address] 01:53 PM Physician reviewing films [email or web address] :54 PM Time: 13:39 Patient comfortable and pain free: Yes [email or web address] :54 PM Time: 13:39LOC: 4 = Oriented but drowsy [email or web address] 01:54 PM Catheter removed [email or web address] 01:54 PM HR=62 bpm, YAEA=937/68 mmhg, SpO2=88.0 %, Resp=15 B/min 01:55 PM Lesion found in Distal LMCA. Pre Stenosis: 40 Pre GLENYS Flow: [email or web address] 01:55 PM Left Main Coronary Artery with 40% stenosis [email or web address] 01:55 PM 5Fr Pigtail catheter inserted over the wire [facility] [email or web address] 01:56 PM Pressure channel 1 zeroed. 01:56 PM Catheter crossed the aortic valve and was selectively placed in the left ventricle. Pressures recorded on pullback for left heart catheterization. [email or web address] 01:56 PM Recorded Pressure: LV, HR=60, Condition=Condition 1 (Left Ventricle) LV 121/16/31 01:57 PM Bolus angiogram of left Ventricle complete: 11 ml/sec for a total of 30 mls [email or web address] :58 PM Recorded Pressure: LV, Ao, HR=59, Condition=Condition 1 (Left Ventricle) LV 112/11/31, (Aorta) Ao 110/54/77 01:58 PM Catheter removed [email or web address] :58 PM Pressure channel 3 zeroed. 01:59 PM Inflation device was opened. [email or web address] 01:59 PM 6Fr RBL 3.5 Convey guide catheter was used to cannulate the PCI vessel successfully. reused? No [email or web address] 01:59 PM HR=61 bpm, HCBB=330/61 mmhg, SpO2=90.0 %, Resp=14 B/min 02:01 PM Pressure channel 3 zeroed. 02:02 PM [employer] FFR Wire advanced to target lesion. 02:04 PM Physician consulting with Dr. Malave and Michael Lynne 02:04 PM Time: 14:04 Nitroglycerin 200 mcg Intracoronary Given by Jose Carlos Hook MD 02:04 PM HR=65 bpm, QPNW=230/62 mmhg, SpO2=90.0 %, Resp=27 B/min 02:04 PM Time: 14:04 90mg Adenosine in 90 ml 0.9 NS 697 mcg Intravenous Given by Pradip Aguilar RN Martinez pump 02:04 PM Pressure channel 3 equalized to channel 1. 02:05 PM Pressure channel 3 equalization failed. 02:05 PM Pressure channel 3 equalized to channel 1. 02:07 PM FFR: Value=0.90, Condition=Condition 1, Device=VOLCANO PRIME WIRE 02:07 PM Recorded Pressure: Ao, PV1, FFR=0.90, HR=67, Condition=Condition 1 (Aorta) Ao 114/69/87, (Portal Vein) PV1 109/109/79 02:07 PM Lesion found in 1st Diagonal. Pre Stenosis: 50 Pre GLENYS Flow: [email or web address] 02:08 PM adenosine off [email or web address] 02:08 PM Recorded Pressure: Ao, PV1, FFR=0.91, HR=69, Condition=Condition 1 (Aorta) Ao ?/?/?, (Portal Vein) PV1 ?/?/? 02:08 PM FFR: Value=0.91, Condition=Condition 1, Device=VOLCANO PRIME WIRE 02:09 PM FFR Measurement: 0.91 [email or web address] 02:09 PM Time: 13:54 Patient comfortable and pain free: Yes [email or web address] 02:09 PM Time: 13:54LOC: 4 = Oriented but drowsy [email or web address] 02:09 PM HR=65 bpm, RRXO=155/68 mmhg, SpO2=92.0 %, Resp=24 B/min 02:10 PM Recorded Pressure: Ao, PV1, FFR=-74, HR=65, Condition=Condition 1 (Aorta) Ao 129/83/102, (Portal Vein) PV1 129/128/94 02:10 PM FFR in process. 02:11 PM Flow Wire/Catheter removed intact 02:12 PM Guide catheter removed intact. [email or web address] 02:13 PM 9 ml air in Vasc Band. [email or web address] 02:13 PM Arterial sheath pulled, Vasc Band closure device used and was Successful S/N. [email or web address] 02:14 PM Procedure completed at 14:13 08/07/2018 [email or web address] 02:14 PM Sign out completed: Radiation Dose 708.57 mGy, 49.1663 Gy/cm2 Fluoro Time: 6.5 Isovue 370 - 200ml contrast 121 ml given by Jose Carlos Hook MD, [facility]. Complications: None. The patient was discharged out of the clinical laboratory manager in stable condition. Cardiac Rehab Consult needed: NoConfirmed administered medications: Yes [email or web address] 02:14 PM Isovue 370 - 200ml,1 Bottle(s) used. [email or web address] 02:14 PM HR=65 bpm, DDOP=361/67 mmhg, SpO2=91.0 %, Resp=24 B/min 02:14 PM Estimated Blood Loss: less than 20cc [email or web address] 02:14 PM Post ECG NSR [email or web address] 02:15 PM Post Blood Pressure 115/67 [email or web address] 02:15 PM 14:15 Post Pulses Bilateral DP & PT 1+ [email or web address] 02:15 PM 14:15 Post Pulses Rt Radial 1+ [email or web address] 02:15 PM Information taught Cardiac Cath, IVUS/Flowire, and Vasc Band [email or web address] 02:16 PM Education needs Procedure, Plan of Care, and Disease Process [email or web address] 02:16 PM Learning barriers :Sedated [email or web address] 02:16 PM Education Methods Verbal [email or web address] 02:16 PM Education evaluation Needs further instruction [email or web address] 02:16 PM Site status No bleeding/hematoma - Rt Wrist as reported by Aminata Echols RT (R) at 14:16 [email or web address] 02:16 PM Delay to floor No [email or web address] 02:16 PM Family placed in consult room. [email or web address] 02:16 PM Complications: None [email or web address] 02:19 PM HR=60 bpm, REFW=852/71 mmhg, SpO2=91.0 % 02:21 PM Report given to cami GOEL Pt taken to ICU Room #10. 14:21 [email or web address] 02:22 PM Vitals capture stopped. 02:23 PM Patient out of room: 14:23 [email or web address] 02:24 PM Time: 14:09 Patient comfortable and pain free: Yes [email or web address] 02:24 PM Time: 14:09LOC: 5 = Fully awake and oriented or at pre-proc level [email or web address] Complications Complication None None Hemodynamics Pressures Site Systolic/A Wave Diastolic/V Wave Mean AO 104 56 76 AO 84 49 64 LV 121 16 31 LV 112 11 31 AO 110 54 77 AO 114 69 87 PV1 109 109 79 AO PV1 AO PV1 Post Procedure Information Blood Pressure: 115/67 mmHg Rhythm: NSR Post procedural instructions were given Closure Device Time Device Success/Fail 08/07/2018 2:13:00 PM Mechanical Compression Successful Site Checks Time Location Status Staff Sheath In? Note 02:16 PM Rt Wrist No bleeding/hematoma Aminata Echols RT (R) Pulses Time Site Pre-Procedure Post-Procedure Note 08/07/2018 1:27:00 PM Bilateral DP & PT 1+ 08/07/2018 1:27:00 PM Bilateral radial 2+ 2:15:00 PM Bilateral DP & PT 1+ 2:15:00 PM Rt Radial 1+ Updated by Fabio Echols RT (R) on 08/07/2018 2:28:33 PM RT Mekhi electronically signed on 08/07/2018 2:28:56 PM with status of Final
[2018-08-08] MEDS: Amiodarone Premix 360 MG/200 ML BAG IVC SCH ×2 (00:08→16:53)
[2018-08-08] MEDS: Heparin 25,000 UNIT/500 ML D5W 25,000 UNIT/500 ML BAG IVC SCH (01:00)
[2018-08-08] MEDS ORDERED: 0.9 % Sodium Chloride 500 ML ONE (02:36)
--- NOTE | 2018-08-08 07:53 | Internal Med Progress Note ---
Hospitalist Progress Note - Encounter Date of Encounter: 08/08/18 Time of Encounter: 08:00 - Exam Vitals: Temp Pulse Resp BP Pulse Ox 98.7 F 74 22 135/76 91 08/08/18 07:42 08/08/18 07:42 08/08/18 07:42 08/08/18 07:42 08/08/18 07:42 Exam: Gen: Vitals noted. No acute distress. HEENT: Normocephalic, atraumatic Neck: Supple. No adenopathy. Chest: Incision scar is present on abdomen from cholecystectomy and previous abdominal surgery Cardiac: RRR, no murmur, +S1/S2 Pulmonary: CTA bilaterally, no wheezes, rales or rhonchi, equal chest expansion Abdomen: soft, nontender, no guarding Back: Nontender throughout. MSK: ROM intact, no joint swelling noted Extremities: no BLE edema, nontender calf, no cyanosis or clubbing Neuro: moves all extremities, no focal deficits. A&Ox3 Psych: Appropriate mood and behavior - Assessment and Plan (1) Ventricular tachycardia Current Visit: Yes Status: Resolved Assessment and Plan: Ventricular tachycardia, resolved status post cardioversion Patient presented with unstable V. tach, currently stable on amiodarone Continue amiodarone drip . Cardiology following and did a cath showing severe one vessel disease and depressed EF Ep consult. Plan on ICD vs life vest for primary and secondary sudden cardiac prevention. Follow cardio recs (2) NSTEMI (non-ST elevated myocardial infarction) Current Visit: Yes Status: Acute Assessment and Plan: s/p cath showing severe one vessel disease. continue heparin drip and beta brando pending further cardiology recs (3) CAD (coronary artery disease) Current Visit: Yes Status: Chronic Assessment and Plan: Coronary artery disease, status post 7 stents Last stent was in 2006 according to patient s/p cath. See plan for NSTEMI (4) PAD (peripheral artery disease) Current Visit: No Status: Chronic Assessment and Plan: History of PAD post bilateral bypass grafts (5) Tobacco abuse Current Visit: Yes Status: Acute Assessment and Plan: We will hold nicotine patches as the patient did have cardiac event on this admission (6) HTN (hypertension) Current Visit: Yes Status: Acute Assessment and Plan: Blood pressure has been well controlled, and borderline hypotensive We will hold any home antihypertensive medications as able (7) DVT prophylaxis Current Visit: Yes Status: Acute Assessment and Plan: SQ Heparin - Time Spent with Patient Total time spent is greater than 50% in coordination of care (as documented) at patient's floor/unit and/or counseling patient: Internal Medicine: Result - Labs CBC & Chem 7: 08/07/18 06:44 08/07/18 05:05 Labs: Cardiac Enzymes 08/07/18 Range/Units 10:38 Troponin I 2.66 H* (< 0.04) ng/mL - ABG Interpretation ABG results: PT/INR, D-dimer PT 12.0 Seconds (9.4-12.1) 08/07/18 05:05 Consult Discharge Plan - Plan [facility]errals: [facility] [Primary Care Provider] - (3) CAD (coronary artery disease) Qualifiers: Coronary Disease-Associated Artery/Lesion type: [place] artery [place] vs. transplanted heart: [place] heart Associated angina: without angina Qualified Code(s): I25.10 - Atherosclerotic heart disease of [place] coronary artery without angina pectoris (6) HTN (hypertension) Qualifiers: Hypertension type: essential hypertension Qualified Code(s): I10 - Essential (primary) hypertension
[2018-08-08] MEDS: Aspirin 81 MG TAB.CHEW PO SCH (08:07)
[2018-08-08] MEDS ORDERED: Metoprolol XL (24 HR) Succ 25 MG TAB.ER.24H PO SCH (09:00)
--- NOTE | 2018-08-08 10:16 | Cardiology Progress Note ---
Date of Encounter: 08/08/18 Time of Encounter: 08:30 Assessment and Plan (1) Ventricular tachycardia Current Visit: Yes Status: Resolved Converted to normal sinus rhythm s/p amiodarone and DC cardioversion in the ER Heart rate in the 70s. No electrolyte abnormalities. Possibly instigated by NSTEMI. EP on consult to discuss medical management versus lifevest versus ICD. Continue amiodarone drip. (2) NSTEMI (non-ST elevated myocardial infarction) Current Visit: Yes Status: Acute Troponin elevated. Cardiac catheterization on 08/[address] Hook shows 100% occlusion of circumflex. Left main with 40-50% stenosis, diagonal and LAD with 50% stenosis Echocardiogram with LVEF 40-45%, mild global left ventricular systolic dysfunction, mild to moderate mitral regurgitation. History of CAD and 9 stent placements in the past. No active chest pain. EP on consult as above. It is unknown if the occlusions are new or old. Will review prior records from outside facilities to determine possible revascularization versus medical management. Continue with heparin drip for now and Toprol XL. Cardiac rehab. (3) CAD (coronary artery disease) Current Visit: Yes Status: Chronic Cardiac cath completed yesterday. 100% occlusion of L circumflex Plan as above. Qualifiers: Coronary Disease-Associated Artery/Lesion type: [place] artery [place] vs. transplanted heart: [place] heart Associated angina: without angina Qualified Code(s): I25.10 - Atherosclerotic heart disease of [place] coronary artery without angina pectoris (4) PAD (peripheral artery disease) Current Visit: No Status: Chronic S/p bilateral femoral bypass grafts in 2008 Claudication improved s/p intervention. No followup. (5) HTN (hypertension) Current Visit: Yes Status: Acute Blood pressures stable. Home antihypertensive medications on hold Qualifiers: Hypertension type: essential hypertension Qualified Code(s): I10 - Essential (primary) hypertension (6) Tobacco abuse Current Visit: Yes Status: Acute Smokes 1/3 pack per day. Smoking cessation counseled, patient will consider. Discussion w patient/family: The assessment and plan as outlined above was discussed with the patient and/or family members who expressed understanding and agreement. All questions were answered. Thank you for involving us in the care of your patient. Please call with any questions. Subjective Principal diagnosis: Ventricular tachycardia, NSTEMI Interval history: Patient received cardiac catheterization yesterday per Dr. Hook. 100% occlusion of left circumflex. No revascularization done as it is unknown if this is a new or old occlusion. Obtaining prior medical records from outside facilities. Patient tolerated the procedure well. Heart rate is in the 70s overnight and this morning and normotensive. He denies chest pain, lightheadedness, weakness, or any other complaints this morning. Eating breakfast. Does complain of some shortness of breath at rest. Oxygen saturations dropped to 85% and O2 per NC increased to 5L. Improved O2 saturations and shortness of breath. Denies productive cough. Objective Vital Signs, Last 4 Hours Temp Pulse Resp BP Pulse Ox 08/08/18 07:42 98.7 F 74 22 135/76 91 General: Conversant, No Apparent Distress HEENT: Atraumatic, Normocephaly Neck: No JVD, Normal carotid pulses Cardiac: Reg Rate and Rhythm, Normal S1 and S2, No Murmur Lungs: Normal Breath Sounds, Other (mild expiratory wheezing bilaterally. O2 per NC) Neuro: Alert and responsive, No focal deficits noted Abdomen: Soft, Non-Tender Skin: No rashes noted on visualized skin Musculoskeletal: No Chest Wall Tenderness Extremities: No Edema, Normal Pulses (radial pulses equal bilaterally) Results 08/07/18 06:44 08/07/18 05:05 Lab Results 08/07/18 10:38 Troponin I 2.66 H* - Imaging and Cardiology Echo: report reviewed (LVEF 40-45%, mild global left ventricular systolic dysfunction, and mild-moderate mitral regurgitation) Cardiac cath: report reviewed Consult Discharge Plan - Plan Referrals: [facility] [Primary Care Provider] -
--- NOTE | 2018-08-08 15:33 | Electrophysiology Consult Note ---
<Gloria Abad - Last Filed: 08/08/18 15:39> Date of Encounter: 08/08/18 Time of Encounter: 15:00 Assessment and Plan (1) Ventricular tachycardia Current Visit: Yes Status: Resolved Per EP: -Admitted with VT, ?NSTEMI induced. Was given amio bolus, adenosine, ultimately cardioverted. -Currently on amio drip, BB. -No recurrence on VT noted. -Of note, LHC performed with 40% left main FFR negative, 30% mid LAD, 50% diagonal 1 FFR negative, 100% proximal circ with collaterals ?[employer], 50% distal RCA, 60-70% PDA small vessel diffusely diseased. -TTE with LVEF 40-45%. -Known CAD, multiple PCIs. Does not follow with cardiology. -Will increase BB. -Keep K >4, Mg >2. -Agree with records review to determine if circ lesion is new and could be re- vascularized. -If circ lesion is old, cannot be re-vascularized, can consider life vest vs. defibrillator. Of note, daughter and state they prefer implanted defibrillator due to patient's non-compliance. -Further recommendations pending records review. Per RN at bedside, medical records at previous hospital has been contacted. (2) Ischemic cardiomyopathy Current Visit: Yes Status: Acute Per cardiology: -LVEF 40-45% per TTE. -On BB. -Euvolemic on exam. -Will increase BB -Will add berenice inhibitor. -See VT as above. Discussion w patient/family: The assessment and plan as outlined above was discussed with the patient and/or family members who expressed understanding and agreement. All questions were answered. Thank you for involving us in the care of your patient. Please call with any questions. Discussed and reviewed with Dr.John Kilgore. History of Present Illness Consult date: 08/08/18 Requesting physician: Earline Pedraza Consult reason: VT Chief complaint: chest pain History of present illness: Mr. Nj is a 72 year old male with a relevant past medical history CAD s/p multiple PCIs, PA, HTN who presented to [facility] with complaints of chest pain. Patient was noted to be in VT. In ER amio bolus was given, adenosine was given. Ultimately, patient was cardioverted. Pateint denies chest pain. Denies shortness of breath. Denies dizziness, lightheadedness. Past Med Surg Social Fam HX - Past Medical History Attestation: Yes The following information was validated with the patient. Source: patient, old records reviewed, obtained from family Medical history: coronary artery disease, hypertension, myocardial infarction Additional medical history: Pt very poor historian. STates "I take 9 pills a day , but I don't know what they are for" Psychiatric history: no psych history - Past Surgical History Additional surgical history: 9 heart stents - Social History Smoking Status: Current every day smoker Smokeless Tobacco Status: No Alcohol use: none Drug use: none Medications and Allergies Aspirin [Adult Aspirin Regimen] 81 mg PO DAILY 08/07/18 [History] Atorvastatin Calcium 40 mg PO HS 08/07/18 [History] Carvedilol [Coreg] 6.25 mg PO BIDWM 08/07/18 [History] Clopidogrel [Plavix] 75 mg PO DAILY 08/07/18 [History] Isosorbide MONOnitrate (24 HR) [Imdur] 60 mg PO DAILY 08/07/18 [History] Losartan [Cozaar] 25 mg PO DAILY 08/07/18 [History] Ranitidine HCl [Heartburn Relief] 150 mg PO HS 08/07/18 [History] amLODIPine [Norvasc] 10 mg PO DAILY 08/07/18 [History] 3 Allergy/AdvReac Type Severity Reaction Status Date / Time No Known Allergies Allergy Verified 08/06/18 23:11 All Systems Review: The remainder of the systems were reviewed and are negative - Cardiovascular Cardiovascular: as per HPI, chest pain at rest, chest pain with exertion Physical Examination Vital Signs, Last 4 Hours Pulse BP 08/08/18 14:23 71 127/78 General: Conversant, No Apparent Distress HEENT: Atraumatic, Normocephaly, Mucus Membranes Moist Neck: No JVD, Normal carotid pulses Cardiac: Reg Rate and Rhythm, Normal S1 and S2, No Murmur Lungs: Normal Breath Sounds, No Wheeze, Rales, Rhonchi Neuro: Alert and responsive, No focal deficits noted Abdomen: Soft, Non-Tender Skin: No rashes noted on visualized skin Musculoskeletal: No Chest Wall Tenderness Extremities: No Clubbing, No Cyanosis, No Edema, Normal Pulses Results 08/07/18 06:44 08/07/18 05:05 Active Medications Aspirin (Aspirin) 81 mg PO DAILY [facility] Stop: 02/06/19 09:01 Last Admin: 08/08/18 08:07 Dose: 81 mg Atorvastatin Calcium (Lipitor) 40 mg PO HS [facility] Stop: 02/07/19 21:01 Heparin Sodium (Porcine) (Heparin) 4,000 unit IVP Q6HR PRN PRN Reason: SEE COMMENTS Stop: 02/06/19 06:09 Heparin Sodium (Porcine) (Heparin) 2,000 unit IVP Q6H PRN PRN Reason: SEE COMMENTS Stop: 02/06/19 06:09 Amiodarone HCl/Dextrose (Amiodarone Drip Premix 360mg/200ml) 360 mg in 200 mls @ 16.667 mls/hr IVC CONT CHARLENE PRN Reason: 0.5 MG/MIN Stop: 02/06/19 04:01 Last Admin: 08/08/18 00:08 Dose: 0.5 mg/min, 16.667 mls/hr Heparin Sodium/Dextrose (Heparin 25,000 Unit/500 Ml D5w) 25,000 unit in 500 mls @ 19.992 mls/hr IVC .Q24H CHARLENE; 12 UNIT/KG/HR PRN Reason: Protocol Stop: 02/06/19 06:16 Last Titration: 08/08/18 09:59 Dose: 12 unit/kg/hr, 20 mls/hr Metoprolol Succinate (Toprol Xl) 25 mg PO DAILY [facility] Stop: 02/08/19 09:01 Naloxone HCl (Narcan) 0.4 mg IVP Q2MIN PRN PRN Reason: SEE COMMENTS Stop: 02/06/19 04:13 Ondansetron HCl (Zofran) 4 mg IVP Q8HR PRN PRN Reason: Nausea And Vomiting Stop: 02/06/19 03:44 Oxycodone HCl (Oxycodone Oral Conc) 5 mg SL Q4H PRN; Protocol PRN Reason: mild to moderate pain Stop: 02/06/19 03:44 Oxycodone HCl (Oxycodone Oral Conc) 10 mg SL Q4H PRN; Protocol PRN Reason: Severe Pain Stop: 02/06/19 03:44 Laboratory Tests 08/06/18 08/06/18 08/07/18 23:10 23:10 05:05 Hgb Potassium 4.2 Creatinine 0.88 Magnesium 2.1 Troponin I < 0.03 1.75 H* TSH 4.464 08/07/18 08/07/18 06:44 10:38 Hgb 14.3 D Potassium Creatinine Magnesium Troponin I 2.66 H* TSH - Imaging and Cardiology Chest Xray: report reviewed Echo: report reviewed Cardiac cath: report reviewed - EKG Interpretation EKG results cardiology: personally reviewed (ECG on admission reviewed with VT, HR 186.), other (Telemetry reveiwed with average HR previous 12 hours noted to be 70, SR. PVCs, one couplet, PACs noted.) Consult Discharge Plan - Plan [facility]errals: [facility]Primary Care Provider[facility] - <Joseph Kilgore - Last Filed: 08/09/18 16:00> Date of Encounter: 08/09/18 - Attending Attestation I have personally performed a face to face evaluation on this patient. I have reviewed and agree with the care plan. History and Exam by me shows: Presented with sustained VT. Minimally positive troponin. No intervention performed on left heart cath, chronically occluded circumflex. Ischemic cardiomyopathy chronic. Would recommend secondary prevention ICD. Assessment and Plan Discussion w patient/family: The assessment and plan as outlined above was discussed with the patient and/or family members who expressed understanding and agreement. All questions were answered. Thank you for involving us in the care of your patient. Please call with any questions. History of Present Illness History of present illness: Mr. Nj is a 72 year old male All Systems Review: The remainder of the systems were reviewed and are negative Physical Examination Vital Signs, Last 4 Hours Temp Pulse Resp BP Pulse Ox 08/09/18 15:43 98.2 F 68 18 125/71 93 Results 08/09/18 03:09 08/09/18 03:09 Lab Results 08/09/18 08/09/18 03:09 03:09 WBC 13.9 H Hgb 14.4 Hct 41.9 Plt Count 133 L Sodium 136 Potassium 3.3 L Chloride 104 Carbon Dioxide 23 BUN 9 Creatinine 0.98 Glucose 115 H Calcium 9.0 Magnesium 1.9
[2018-08-09 03:34] LABS: Basophils # 0.1 K/mcL (0.0-0.2); Basophils % 0.4 %; Eosinophils # 0.1 K/mcL (0.0-0.6); Eosinophils % 0.9 %; Hematocrit 41.9 % (37.5-50.1); Hemoglobin 14.4 g/dL (12.9-16.9); Immature Granulocytes % 0.6 % (0-4); Lymphocytes # 2.6 K/mcL (0.6-4.6); Lymphocytes % 18.8 %; Mean Corpuscular HGB Conc 34.4 g/dL (31.6-35.5); Mean Corpuscular Hemoglobin 28.9 pg (28.0-33.3); Mean Platelet Volume 10.6 fL (9.4-12.4); Monocytes # 1.8 K/mcL (0.0-1.3); Monocytes % 13.2 %; Neutrophils # 9.2 K/mcL (1.6-8.9); Platelet Count 133 K/mcL (140-400); Red Blood Count 4.99 M/mcL (4.19-5.50); Red Cell Distribution Width 14.6 % (11.5-14.5); Segmented Neutrophils % 66.1 %
[2018-08-09 03:54] LABS: BUN/Creatinine Ratio 9 (6-26); Blood Urea Nitrogen 9 mg/dL (8-23); Carbon Dioxide 23 mEq/L (23-29); Chloride 104 mEq/L (98-107); Glucose 115 mg/dL (70-105); Magnesium 1.9 mg/dL (1.6-2.6); Osmolality,Calculated 282 (280-300); Phosphorous 2.3 mg/dL (2.7-4.5); Potassium 3.3 mEq/L (3.5-5.1); Sodium 136 mEq/L (136-145); eGFR For Non-African Americans > 60 (> 60)
[2018-08-09] MEDS: Heparin 25,000 UNIT/500 ML D5W 25,000 UNIT/500 ML BAG IVC SCH (05:58)
[2018-08-09] MEDS ORDERED: Potassium Chloride Elixir 20 MEQ/15 ML UDC PO SCH (09:15)
--- NOTE | 2018-08-09 09:31 | Internal Med Progress Note ---
<Pritesh Schuler - Last Filed: 08/09/18 14:24> Hospitalist Progress Note - Encounter Date of Encounter: 08/09/18 Time of Encounter: 09:55 - Subjective Interval History: Mr. Nj is a 72M with PMH of CAD with 8 stents, most recent PCI in 2006, PAD s/ p bilateral lower extremity bypass grafts and HTN. He presented to the emergency room with 30 minutes history of chest tightness on 08/06. The patient said the chest tightness started approximately 30 minutes prior to arrival at the ED, and it was not really necessarily a pain, however it was tightness which radiated towards his back. States it was similar to an experience he had in 2006 which was a MS requiring stents. Admitted to associated palpitations. Denied diaphoresis, dyspnea, nausea, or vomiting. His did note that he had a coughing fit earlier in the evening by approximately 3 hours, which he agreed to. He does say that this happens regularly, however it was not associated with any production of phlegm, and said felt like he had in itch or scratch in his throat. In the ED, EKG showed wide complex tachycardia with a rate of greater than 180 which was refractory to adenosine. He was successfully cardioverted in the ED which resulted in return to normal sinus rhythm. He was placed on an amiodarone drip before being transferred to the ICU. Cardiology believed this presumed Vtach was caused by an NSTEMI and proceeded with [facility] on 08/07. Echo revealed LVEF 40-45%. Multi-vessel disease was seen in [facility] including 100% occlusion of RCA, and 50% stenosis in the left main, diagonal, and LAD. No new stents were placed at this time. After reviewing records, cardiology decided to opt for maximal medical therapy of CAD with ICD placement. Plan for ICD placement today (08/09). Pt seen and examined at bedside. Resting comfortably. No acute distress. Denies any current chest pain, or increased dyspnea. Denies any fever, chills, increased cough, change in sputum production or character, abdominal pain, nausea, or vomiting. - Exam Vitals: Temp Pulse Resp BP Pulse Ox 98.6 F 70 14 145/74 94 08/09/18 07:30 08/09/18 07:30 08/09/18 07:30 08/09/18 07:30 08/09/18 07:30 Exam: Constitutional: well nourished, well developed male. no acute distress Head: normocephalic and atraumatic Eyes: PERRL, EOMI, sclera anicteric Neck: supple, trachea midline, no lymphadenopathy Lungs: CTA bilaterally. non-labored breathing. no wheezes, rales, or rhonchi. Heart: RRR +S1 +S2. no murmurs, clicks, or rubs. GI: abdomen soft, non-tender, non-distended Extremities: radial pulses palpable and symmetrical. no edema or cyanosis. Neuro: A&Ox3. No focal deficits. No speech difficulty or abnormality. Skin: warm, dry, intact - Assessment and Plan (1) Ventricular tachycardia Current Visit: Yes Status: Resolved Assessment and Plan: Presented with wide complex tachycardia suspicious for Vtach Refractory to adenosine s/p successful cardioversion in ED Continue amiodarone drip per cardio Going for ICD placement today (2) CAD (coronary artery disease) Current Visit: Yes Status: Chronic Assessment and Plan: Hx of CAD with 8 stents Most recent stent placed in 2006 [facility] on 08/07 showed multi-vessel disease including 100% occlusion of RCA, and 50 % stenosis in the left main, diagonal, and LAD. Recs per cardio: optimal medical management Continue ASA, Lipitor, and Metoprolol (3) HTN (hypertension) Current Visit: Yes Status: Acute Assessment and Plan: Stable Most recent BP 145/74 Continue Losartan and Metoprolol (4) PAD (peripheral artery disease) Current Visit: No Status: Chronic Assessment and Plan: History of PAD s/p bilateral bypass grafts Stable (5) Tobacco abuse Current Visit: Yes Status: Acute Assessment and Plan: hx of tobacco abuse Spent >10minutes discussing the importance of smoking cessation and treatment alternatives Hold nicotine patch with significant cardio events (6) NSTEMI (non-ST elevated myocardial infarction) Current Visit: Yes Status: Acute Assessment and Plan: s/p C as above Management per cardio as above DVT Prophylaxis: on Heparin drip - Time Spent with Patient Total time spent is greater than 50% in coordination of care (as documented) at patient's floor/unit and/or counseling patient: Internal Medicine: Result - Labs CBC & Chem 7: 08/09/18 03:09 08/09/18 03:09 Labs: Short CBC 08/09/18 Range/Units 03:09 WBC 13.9 H (4.3-11.1) K/mcL Hgb 14.4 (12.9-16.9) g/dL Hct 41.9 (37.5-50.1) % Plt Count 133 L (140-400) K/mcL Neutrophils # 9.2 H (1.6-8.9) K/mcL BMP 08/09/18 03:09 Sodium 136 Potassium 3.3 L Chloride 104 Carbon Dioxide 23 BUN 9 Creatinine 0.98 Glucose 115 H Calcium 9.0 - ABG Interpretation ABG results: PT/INR, D-dimer PT 12.0 Seconds (9.4-12.1) 08/07/18 05:05 Consult Discharge Plan - Plan [facility]errals: [facility] [Primary Care Provider] - <Raghavendra Nathan - Last Filed: 08/09/18 15:01> Hospitalist Progress Note - Encounter Date of Encounter: 08/09/18 - Exam Vitals: Temp Pulse Resp BP Pulse Ox 98 F 66 14 120/71 92 08/09/18 11:20 08/09/18 11:20 08/09/18 11:20 08/09/18 11:20 08/09/18 11:20 - Assessment and Plan (1) Ventricular tachycardia Current Visit: Yes Status: Resolved (2) CAD (coronary artery disease) Current Visit: Yes Status: Chronic (3) PAD (peripheral artery disease) Current Visit: No Status: Chronic (4) Tobacco abuse Current Visit: Yes Status: Acute (5) HTN (hypertension) Current Visit: Yes Status: Acute (6) NSTEMI (non-ST elevated myocardial infarction) Current Visit: Yes Status: Acute - Time Spent with Patient Total time spent is greater than 50% in coordination of care (as documented) at patient's floor/unit and/or counseling patient: Internal Medicine: Result - Labs CBC & Chem 7: 08/09/18 03:09 08/09/18 03:09 Labs: Short CBC 08/09/18 Range/Units 03:09 WBC 13.9 H (4.3-11.1) K/mcL Hgb 14.4 (12.9-16.9) g/dL Hct 41.9 (37.5-50.1) % Plt Count 133 L (140-400) K/mcL Neutrophils # 9.2 H (1.6-8.9) K/mcL BMP 08/09/18 03:09 Sodium 136 Potassium 3.3 L Chloride 104 Carbon Dioxide 23 BUN 9 Creatinine 0.98 Glucose 115 H Calcium 9.0 - ABG Interpretation ABG results: PT/INR, D-dimer PT 12.0 Seconds (9.4-12.1) 08/07/18 05:05 - Attending Attestation Seen and assessed. Agree with plan per resident 72M with PMH of CAD with 8 stents, most recent PCI in 2006, PAD s/p bilateral lower extremity bypass grafts and HTN. He presented to the emergency room with 30 minutes history of chest tightness on 08/06. The patient said the chest tightness started approximately 30 minutes prior to arrival at the ED, and it was not really necessarily a pain, however it was tightness which radiated towards his back. Plan Sustained V- tach s/p cardioversion and CAd with new cardiomyopathy. Plan for ICD for secndary prevention today. D/C amiodarone and heparin drip. Cardiology following <Pritesh Schuler A - Last Filed: 08/09/18 14:24> (2) CAD (coronary artery disease) Qualifiers: Coronary Disease-Associated Artery/Lesion type: [place] artery [place] vs. transplanted heart: [place] heart Associated angina: without angina Qualified Code(s): I25.10 - Atherosclerotic heart disease of [place] coronary artery without angina pectoris (3) HTN (hypertension) Qualifiers: Hypertension type: essential hypertension Qualified Code(s): I10 - Essential (primary) hypertension <Raghavendra Nathan A - Last Filed: 08/09/18 15:01> (2) CAD (coronary artery disease) Qualifiers: Coronary Disease-Associated Artery/Lesion type: [place] artery [place] vs. transplanted heart: [place] heart Associated angina: without angina Qualified Code(s): I25.10 - Atherosclerotic heart disease of [place] coronary artery without angina pectoris (5) HTN (hypertension) Qualifiers: Hypertension type: essential hypertension Qualified Code(s): I10 - Essential (primary) hypertension
--- NOTE | 2018-08-09 09:54 | Cardiology Progress Note ---
Date of Encounter: 08/09/18 Time of Encounter: 08:25 Assessment and Plan (1) Ventricular tachycardia Current Visit: Yes Status: Resolved Converted to normal sinus rhythm s/p amiodarone and DC cardioversion in the ER Remains in sinus, heart rate in the 70s. No recurrence. No electrolyte abnormalities. Possibly instigated by NSTEMI. EP evaluated the patient. Appreciate their recommendations. Continue with amiodarone drip for now. Continue increased dose of BB (25 mg Toprol XL). Keep K>4 and Mg >2 Still awaiting records. If the circumflex lesion is old, cannot be revascularized. Possible defibrillator placement pending these records, which have been requested. (2) NSTEMI (non-ST elevated myocardial infarction) Current Visit: Yes Status: Acute Troponin elevated. Cardiac catheterization on 08/[address] Hook shows 100% occlusion of circumflex. Left main with 40-50% stenosis, diagonal and LAD with 50% stenosis Echocardiogram with LVEF 40-45%, mild global left ventricular systolic dysfunction, mild to moderate mitral regurgitation. History of CAD and 9 stent placements in the past. No active chest pain. EP following. It is unknown if the occlusions are new or old. Will review prior records from outside facilities to determine possible revascularization versus medical management. Continue heparin drip for now until we receive hospital records. Plan as above. Continue ASA, lipitor, losartan, metoprolol. (3) CAD (coronary artery disease) Current Visit: Yes Status: Chronic Plan as above. On ASA, statin, beta brando, losartan, heparin drip. Qualifiers: Coronary Disease-Associated Artery/Lesion type: [place] artery [place] vs. transplanted heart: [place] heart Associated angina: without angina Qualified Code(s): I25.10 - Atherosclerotic heart disease of [place] coronary artery without angina pectoris (4) PAD (peripheral artery disease) Current Visit: No Status: Chronic S/p bilateral femoral bypass grafts in 2008 Claudication improved s/p intervention. Patient has not had any followup. (5) HTN (hypertension) Current Visit: Yes Status: Acute Blood pressures remain controlled. Qualifiers: Hypertension type: essential hypertension Qualified Code(s): I10 - Essential (primary) hypertension (6) Tobacco abuse Current Visit: Yes Status: Acute Smokes 1/3 pack per day. Smoking cessation was counseled. Discussion w patient/family: The assessment and plan as outlined above was discussed with the patient and/or family members who expressed understanding and agreement. All questions were answered. Thank you for involving us in the care of your patient. Please call with any questions. Subjective Principal diagnosis: Ventricular tachycardia, NSTEMI Interval history: Patient seen and examined this morning. Family at bedside. Patient is currently on 5L O2 per [place]. States he becomes significantly short of breath while ambulating. Denies cough, chest pain, chills, palpitations, lightheadedness, dizziness, lower extremity swelling, or any new complaints. Still awaiting records from [place] in [place]. No new arrhythmias overnight. Blood pressure and heart rate stable overnight. Heart rate in the 70s. Objective Vital Signs, Last 4 Hours Temp Pulse Resp BP Pulse Ox 08/09/18 07:30 98.6 F 70 14 145/74 94 General: Conversant, No Apparent Distress HEENT: Atraumatic, Normocephaly Neck: No JVD Cardiac: Reg Rate and Rhythm, No Murmur Lungs: Normal Breath Sounds, Other (mild expiatory wheezes bilaterally, no crackles or rales. On O2 per [place].) Neuro: Alert and responsive, No focal deficits noted Abdomen: Soft, Non-Tender Skin: No rashes noted on visualized skin Extremities: No Edema, Normal Pulses (Bilateral radial pulses equal) Results 08/09/18 03:09 08/09/18 03:09 Lab Results 08/09/18 08/09/18 03:09 03:09 WBC 13.9 H Hgb 14.4 Hct 41.9 Plt Count 133 L Sodium 136 Potassium 3.3 L Chloride 104 Carbon Dioxide 23 BUN 9 Creatinine 0.98 Glucose 115 H Calcium 9.0 Magnesium 1.9 - Imaging and Cardiology Echo: report reviewed Cardiac cath: report reviewed Consult Discharge Plan - Plan [facility]errals: [facility] [Primary Care Provider] -
[2018-08-09] MEDS: Metoprolol XL (24 HR) Succ 25 MG TAB.ER.24H PO SCH (10:23)
[2018-08-09] MEDS: Aspirin 81 MG TAB.CHEW PO SCH (10:23)
[2018-08-09] MEDS ORDERED: WATER IVPB ONE (13:00)
[2018-08-09] MEDS ORDERED: D5 IVPB ONE (13:00)
[2018-08-09] MEDS ORDERED: POTASSIUM CHLORIDE IVPB ONE (13:00)
[2018-08-09] MEDS ORDERED: CeFAZolin Syr 2,000MG/20 ML 2,000 MG/20 ML SYRINGE IVPB ONE (13:13)
--- NOTE | 2018-08-09 14:00 | Event Note ---
Date of Encounter: 08/09/18 Time of Encounter: 12:55 - Cardiology Event Note Discussed and reviewed with and , who reviewed [facility] films. Suspect circumflex lesion is chronic, good quality collaterals noted. Discussed and reviewed with Dr.John Kilgore, plan for ICD today for secondary prevention, sustained ventricular tachycardia, and cardiomyoapthy. Discussed and reviewed with patient and family regarding risks versus benefits of ICD, state understanding and agreeable to proceed. Educated patient and family on need for close follow up with ICD, state understanding. Patient states he will follow with cardiology. Of note, BB has been increased. Discussed with Dr.John Kilgore, will discontinue amiodarone drip. Will continue to monitor.
[2018-08-09] MEDS: *HR* Heparin 5,000 UNIT/ML VIAL SQ SCH ×2 (16:01→19:57)
--- NOTE | 2018-08-09 16:55 | Pre-Sedation Evaluation ---
Pre-sedation evaluation - Pre-sedation checklist Date of procedure: 08/07/18 Procedure: [facility] Recent Vitals: Last Vital Signs Temp 98.2 F 08/09/18 15:43 Pulse 68 08/09/18 15:43 Resp 18 08/09/18 15:43 BP 125/71 08/09/18 15:43 Pulse Ox 93 08/09/18 15:43 H&P (including ROS) documented in medical record: Yes Previous reaction to sedatives/anesthetics: No Dietary Status: NPO after Midnight Airway Assessment: Patient can open mouth completely, TMJ function normal, Micrognathia (under-bite, receding chin) absent Dentition: No loose teeth or bridges Possible difficult airway: No ASA Classification *see protocol: CLASS II-Mild systemic disease Plan of Care: Pt appropriate candidate for procedure/moderate/conscious sedation , Risks/benefits of procedure/sedation discussed w/ patient/family Cardiac Registry (Cardio Only) - Functional Capacity - Clincal Frailty Scale
[2018-08-09] MEDS ORDERED: 0.9 % Sodium Chloride 500 ML ONE (17:11)
[2018-08-09] MEDS ORDERED: *HR* Midazolam HCl 2 MG/2 ML VIAL ONE ×2 (17:21→17:35)
[2018-08-09] MEDS ORDERED: *HR* FentaNYL (PF) 100 MCG/2 ML VIAL ONE (17:21)
[2018-08-09] MEDS ORDERED: 0.9 % Sodium Chloride 1,000 ML ONE (17:21)
[2018-08-10 04:25] LABS: Basophils % 0.3 %; Eosinophils # 0.3 K/mcL (0.0-0.6); Eosinophils % 2.1 %; Hematocrit 41.4 % (37.5-50.1); Hemoglobin 14.1 g/dL (12.9-16.9); Immature Granulocytes % 0.2 % (0-4); Lymphocytes # 2.3 K/mcL (0.6-4.6); Lymphocytes % 17.9 %; Mean Corpuscular HGB Conc 34.1 g/dL (31.6-35.5); Mean Corpuscular Hemoglobin 29.1 pg (28.0-33.3); Mean Corpuscular Volume 85.5 fL (83.0-100.0); Mean Platelet Volume 11.1 fL (9.4-12.4); Monocytes # 1.6 K/mcL (0.0-1.3); Monocytes % 12.3 %; Neutrophils # 8.5 K/mcL (1.6-8.9); Platelet Count 116 K/mcL (140-400); Red Blood Count 4.84 M/mcL (4.19-5.50); Red Cell Distribution Width 14.3 % (11.5-14.5); Segmented Neutrophils % 67.2 %
[2018-08-10 04:43] LABS: BUN/Creatinine Ratio 12 (6-26); Blood Urea Nitrogen 13 mg/dL (8-23); Calcium 8.7 mg/dL (8.6-10.3); Carbon Dioxide 25 mEq/L (23-29); Chloride 104 mEq/L (98-107); Glucose 98 mg/dL (70-105); Osmolality,Calculated 284 (280-300); Phosphorous 2.4 mg/dL (2.7-4.5); Potassium 3.7 mEq/L (3.5-5.1); Sodium 137 mEq/L (136-145); eGFR For Non-African Americans > 60 (> 60)
[2018-08-10] MEDS: *HR* Heparin 5,000 UNIT/ML VIAL SQ SCH ×3 (05:24→20:43)
[2018-08-10] MEDS: Metoprolol XL (24 HR) Succ 25 MG TAB.ER.24H PO SCH (08:56)
[2018-08-10] MEDS: Aspirin 81 MG TAB.CHEW PO SCH (08:57)
--- NOTE | 2018-08-10 09:00 | Internal Med Progress Note ---
Hospitalist Progress Note - Encounter Date of Encounter: 08/10/18 Time of Encounter: 09:00 - Exam Vitals: Temp Pulse Resp BP Pulse Ox 98.9 F 71 18 120/78 89 08/10/18 07:35 08/10/18 07:35 08/10/18 07:35 08/10/18 07:35 08/10/18 07:35 Exam: Constitutional: well nourished, well developed male. no acute distress Head: normocephalic and atraumatic Eyes: PERRL, EOMI, sclera anicteric Neck: supple, trachea midline, no lymphadenopathy Lungs: CTA bilaterally. non-labored breathing. no wheezes, rales, or rhonchi. Heart: RRR +S1 +S2. no murmurs, clicks, or rubs. GI: abdomen soft, non-tender, non-distended Extremities: radial pulses palpable and symmetrical. no edema or cyanosis. Neuro: A&Ox3. No focal deficits. No speech difficulty or abnormality. Skin: warm, dry, intact - Assessment and Plan (1) Ventricular tachycardia Current Visit: Yes Status: Resolved Assessment and Plan: Presented with wide complex tachycardia suspicious for Vtach Refractory to adenosine s/p successful cardioversion in ED Continue amiodarone drip per cardio Patient had ICD placed on 08/09. Tolerated procedure. Monitor and follow cardio recs for discharge planning (2) NSTEMI (non-ST elevated myocardial infarction) Current Visit: Yes Status: Acute Assessment and Plan: C on 08/07 showed multi-vessel disease including 100% occlusion of RCA, and 50 % stenosis in the left main, diagonal, and LAD. Recs per cardio: optimal medical management Continue ASA, Lipitor, and Metoprolol Management per cardio as above (3) CAD (coronary artery disease) Current Visit: Yes Status: Chronic Assessment and Plan: Hx of CAD with 8 stents Most recent stent placed in 2006 [facility] on 08/07 showed multi-vessel disease including 100% occlusion of RCA, and 50 % stenosis in the left main, diagonal, and LAD. Recs per cardio: optimal medical management Continue ASA, Lipitor, and Metoprolol (4) PAD (peripheral artery disease) Current Visit: No Status: Chronic Assessment and Plan: History of PAD s/p bilateral bypass grafts Stable (5) Tobacco abuse Current Visit: Yes Status: Acute Assessment and Plan: hx of tobacco abuse Spent >10minutes discussing the importance of smoking cessation and treatment alternatives Hold nicotine patch with significant cardio events (6) HTN (hypertension) Current Visit: Yes Status: Acute Assessment and Plan: Stable Most recent BP 145/74 Continue Losartan and Metoprolol - Time Spent with Patient Total time spent is greater than 50% in coordination of care (as documented) at patient's floor/unit and/or counseling patient: Internal Medicine: Result - Labs CBC & Chem 7: 08/10/18 03:33 08/10/18 03:33 Labs: Short CBC 08/10/18 Range/Units 03:33 WBC 12.6 H (4.3-11.1) K/mcL Hgb 14.1 (12.9-16.9) g/dL Hct 41.4 (37.5-50.1) % Plt Count 116 L (140-400) K/mcL Neutrophils # 8.5 (1.6-8.9) K/mcL BMP 08/10/18 03:33 Sodium 137 Potassium 3.7 Chloride 104 Carbon Dioxide 25 BUN 13 Creatinine 1.07 Glucose 98 Calcium 8.7 - ABG Interpretation ABG results: PT/INR, D-dimer PT 12.0 Seconds (9.4-12.1) 08/07/18 05:05 - Impressions Impressions Chest X-Ray 08/09/18 18:19 IMPRESSION: 1. Congestive heart failure. 2. Calcific atherosclerosis aorta. 3. Cardiomegaly. 4. Unremarkable pacemaker positioning with no evidence of pneumothorax or pneumomediastinum. D/ / Manuel Christian / Manuel Christian Interpreting Provider: Manuel Christian Consult Discharge Plan - Plan [facility]errals: [facility] [Primary Care Provider] - (3) CAD (coronary artery disease) Qualifiers: Coronary Disease-Associated Artery/Lesion type: [place] artery [place] vs. transplanted heart: [place] heart Associated angina: without angina Qualified Code(s): I25.10 - Atherosclerotic heart disease of [place] coronary artery without angina pectoris (6) HTN (hypertension) Qualifiers: Hypertension type: essential hypertension Qualified Code(s): I10 - Essential (primary) hypertension
--- NOTE | 2018-08-10 13:21 | Cardiology Progress Note ---
Date of Encounter: 08/10/18 Time of Encounter: 13:18 Assessment and Plan (1) Ventricular tachycardia Current Visit: Yes Status: Resolved Presented with ventricular tachycardia, defibrillator in the ER. Initially on amiodarone, which has been stopped. Beta brando increased. Continue to titrate beta brando as tolerated. Ischemic evaluation performed, medical therapy has been recommended. Amiodarone discontinued by EP. Secondary prevention ICD placed. (2) CAD (coronary artery disease) Current Visit: Yes Status: Chronic Qualifiers: Coronary Disease-Associated Artery/Lesion type: [place] artery [place] vs. transplanted heart: [place] heart Associated angina: without angina Qualified Code(s): I25.10 - Atherosclerotic heart disease of [place] coronary artery without angina pectoris (3) Ischemic cardiomyopathy Current Visit: Yes Status: Acute Date of CAD, unchanged compared to previous reports. Ischemic cardiomyopathy. Recommend continue aspirin, atorvastatin, losartan, and Toprol therapy. Lasix IV started by hospitalist for pulmonary edema. Continued to wean oxygen as tolerated. Given her long smoking history, patient may require supplemental oxygen upon discharge. Consider Aldactone in the future if able. CHF education provided, including a low sodium/2 L daily fluid restricted diet. Discussion w patient/family: The assessment and plan as outlined above was discussed with the patient and/or family members who expressed understanding and agreement. All questions were answered. Thank you for involving us in the care of your patient. Please call with any questions. Subjective Principal diagnosis: Ventricular tachycardia, NSTEMI Interval history: Patient seen and examined. Previous records were reviewed. It appears coronary disease noted during this hospital stay his chronic and unchanged from previous. EP consultation appreciated. Recommendation to stop amiodarone. Recommendation to place ICD, which was done yesterday. Overall, patient reports he is feeling better. He continues to require supplemental oxygen. Long history of tobacco use. Chest x-ray from this morning demonstrates evidence of CHF. Objective Vital Signs, Last 4 Hours Temp Pulse Resp BP Pulse Ox 08/10/18 10:53 98.1 F 63 18 115/58 92 General: Conversant, No Apparent Distress HEENT: Atraumatic, Normocephaly, Mucus Membranes Moist Neck: No JVD, Normal carotid pulses Cardiac: Reg Rate and Rhythm, Normal S1 and S2, No Murmur Lungs: Other (Shallow, mild wheezing noted.) Neuro: Alert and responsive, No focal deficits noted Abdomen: Soft, Non-Tender Skin: No rashes noted on visualized skin Musculoskeletal: No Chest Wall Tenderness Extremities: No Clubbing, No Cyanosis, No Edema Results 08/10/18 03:33 08/10/18 03:33 Lab Results 08/10/18 08/10/18 03:33 03:33 WBC 12.6 H Hgb 14.1 Hct 41.4 Plt Count 116 L Sodium 137 Potassium 3.7 Chloride 104 Carbon Dioxide 25 BUN 13 Creatinine 1.07 Glucose 98 Calcium 8.7 Magnesium 2.0 - Imaging and Cardiology Echo: report reviewed Cardiac cath: report reviewed Consult Discharge Plan - Plan Referrals: [facility] [Primary Care Provider] -
[2018-08-10] MEDS: Furosemide 40 MG/4 ML VIAL IVP SCH ×2 (15:03→20:42)
[2018-08-11 04:24] LABS: Basophils # 0.1 K/mcL (0.0-0.2); Basophils % 0.6 %; Eosinophils # 0.5 K/mcL (0.0-0.6); Eosinophils % 4.3 %; Hematocrit 41.8 % (37.5-50.1); Hemoglobin 14.5 g/dL (12.9-16.9); Immature Granulocytes % 0.3 % (0-4); Lymphocytes # 3.2 K/mcL (0.6-4.6); Lymphocytes % 25.3 %; Mean Corpuscular HGB Conc 34.7 g/dL (31.6-35.5); Mean Corpuscular Volume 83.6 fL (83.0-100.0); Mean Platelet Volume 11.4 fL (9.4-12.4); Monocytes # 1.5 K/mcL (0.0-1.3); Monocytes % 12.2 %; Neutrophils # 7.2 K/mcL (1.6-8.9); Platelet Count 125 K/mcL (140-400); Red Cell Distribution Width 14.1 % (11.5-14.5); Segmented Neutrophils % 57.3 %
[2018-08-11 04:38] LABS: BUN/Creatinine Ratio 20 (6-26); Blood Urea Nitrogen 18 mg/dL (8-23); Calcium 9.2 mg/dL (8.6-10.3); Carbon Dioxide 26 mEq/L (23-29); Chloride 101 mEq/L (98-107); Glucose 97 mg/dL (70-105); Magnesium 1.9 mg/dL (1.6-2.6); Osmolality,Calculated 288 (280-300); Phosphorous 2.9 mg/dL (2.7-4.5); Potassium 3.2 mEq/L (3.5-5.1); Sodium 138 mEq/L (136-145); eGFR For Non-African Americans > 60 (> 60)
[2018-08-11] MEDS: *HR* Heparin 5,000 UNIT/ML VIAL SQ SCH (05:35)
--- NOTE | 2018-08-11 09:17 | Discharge Summary ---
Orders not resulted at time of discharge: Pending orders 08/09/18 13:12 CL Insert ICD [CL] Routine 08/12/18 04:00 Basic Metabolic Panel AM 0400 CBC [Complete Blood Count] [HEME] AM 0400 Magnesium AM 0400 Phosphorous AM 0400 08/13/18 04:00 Basic Metabolic Panel AM 0400 CBC [Complete Blood Count] [HEME] AM 0400 Magnesium AM 0400 Phosphorous AM 0400 08/14/18 04:00 Basic Metabolic Panel AM 0400 CBC [Complete Blood Count] [HEME] AM 0400 Magnesium AM 0400 Phosphorous AM 0400 Date of Encounter: 08/11/18 Time of Encounter: 09:15 - Discharge Diagnosis (1) Ventricular tachycardia Priority: Primary Status: Resolved Assessment and Plan: Mr. Nj is a 72 year old male with history of CAD status post for DC is and 8 stents, last PCI in 2006, PAD status post bilateral lower extremity bypass grafts and hypertension presented to the emergency room with 30 minutes history of chest tightness. In the emergency department it was noted that he had a wide complex tachycardia with a rate of greater than 180 which was resistant to adenosine. He did undergo a cardioversion which resulted in return to normal sinus rhythm, and he was placed on an amiodarone drip before being transferred to the ICU for further workup and observation. He was assessed with V tach and NSTEMI (with elevated troponins) and started on an amiodarone and a heparin drip. He was seen by cardiology and had a cardiac catheterization done on 08/07. Cath revealed severe one vessel coronary artery disease with occluded left circumflex with ipsilateral and contraleteral collaterals. There was also a new cardiomyopathy with EF 30-35% Cardiology recommended EP consult for ICD placement for secondary prevention. He had an ICD placed on 08/09 and tolerated procedure. Pt was noted to have acute hypoxic respiratory failure likely secondary to new acute systolic CHF and he has been started on lasix. His hypoxic respiratory failure resolved prior to discharge with diuresis and he was discharged in a stable condition. He will continue aspirin, plavox imdur. Metoprolol and lasix were added to his regimen. 35 minutes was spent discharging this patient (2) NSTEMI (non-ST elevated myocardial infarction) Priority: Primary Status: Acute (3) CAD (coronary artery disease) Priority: Primary Status: Chronic Qualifiers: Coronary Disease-Associated Artery/Lesion type: [place] artery [place] vs. transplanted heart: [place] heart Associated angina: without angina Qualified Code(s): I25.10 - Atherosclerotic heart disease of [place] coronary artery without angina pectoris (4) PAD (peripheral artery disease) Priority: Secondary Status: Chronic (5) Tobacco abuse Priority: Secondary Status: Acute (6) HTN (hypertension) Priority: Primary Status: Acute Qualifiers: Hypertension type: essential hypertension Qualified Code(s): I10 - Essential (primary) hypertension Hospital course: Mr. Nj is a 72 year old male - Time Spent with Patient Total time spent providing and/or coordinating discharge services: - Discharge Medications Prescriptions: Furosemide [Lasix] 40 mg PO DAILY 30 Days #30 tab Metoprolol XL (24 HR) Succ [Toprol Xl] 25 mg PO DAILY 30 Days #30 tab.er.24h Home Medications: Aspirin [Adult Aspirin Regimen] 81 mg PO DAILY 08/07/18 [History] Atorvastatin Calcium 40 mg PO HS 08/07/18 [History] Clopidogrel [Plavix] 75 mg PO DAILY 08/07/18 [History] Isosorbide MONOnitrate (24 HR) [Imdur] 60 mg PO DAILY 08/07/18 [History] Losartan [Cozaar] 25 mg PO DAILY 08/07/18 [History] Ranitidine HCl [Heartburn Relief] 150 mg PO HS 08/07/18 [History] amLODIPine [Norvasc] 10 mg PO DAILY 08/07/18 [History] Furosemide [Lasix] 40 mg PO DAILY 30 Days #30 tab 08/11/18 [Rx] Metoprolol XL (24 HR) Succ [Toprol Xl] 25 mg PO DAILY 30 Days #30 tab.er.24h [Rx] Allergies/Adverse Reactions: 3 Allergy/AdvReac Type Severity Reaction Status Date / Time No Known Allergies Allergy Verified 08/06/18 23:11 Date of admission: 08/07/18 04:50 [facility] care physician: [facility]CP [facility] Consults: 08/08/18 07:44 Consult to Cardiac Rehabilitation-Phase1 [CONS] Routine Comment: Reason for Consult: NSTEMI Call Completed: Yes 08/08/18 10:24 Consult to Electrophysiology (EP) [CONS] Routine Consulting Provider: Electrophysiology Nabila Reason for Consult: Vtach, NSTEMI. Possible Lifevest versus ICD. Call Completed: No 10/12/18 10:41 Consult to Invasive Line Access Team [CONS] Routine Reason for Consult: limited vascular access Line Type: EPIV - Constitutional Vitals: Temp Pulse Resp BP Pulse Ox 98.4 F 64 18 129/66 95 08/11/18 04:23 08/11/18 04:23 08/11/18 04:23 08/11/18 04:23 08/11/18 04:23 Exam: Constitutional: well nourished, well developed male. no acute distress Head: normocephalic and atraumatic Eyes: PERRL, EOMI, sclera anicteric Neck: supple, trachea midline, no lymphadenopathy Lungs: CTA bilaterally. non-labored breathing. no wheezes, rales, or rhonchi. Heart: RRR +S1 +S2. no murmurs, clicks, or rubs. GI: abdomen soft, non-tender, non-distended Extremities: radial pulses palpable and symmetrical. no edema or cyanosis. Neuro: A&Ox3. No focal deficits. No speech difficulty or abnormality. Skin: warm, dry, intact - Patient Status Disposition: Home, Self-Care Condition: Good - Discharge Instructions Instructions: Metoprolol (By mouth), Furosemide (By mouth), Heart Failure (DC) , Chest Pain (DC), Pacemaker (DC) Follow Up With: [facility] [Primary Care Provider] -
[2018-08-11] MEDS: Potassium Chloride Elixir 20 MEQ/15 ML UDC PO SCH ×2 (09:32→13:37)
[2018-08-11] MEDS: Furosemide 40 MG/4 ML VIAL IVP SCH (09:32)
[2018-08-11] MEDS: Metoprolol XL (24 HR) Succ 25 MG TAB.ER.24H PO SCH (09:33)
[2018-08-11] MEDS: Aspirin 81 MG TAB.CHEW PO SCH (09:33)
--- NOTE | 2018-08-11 12:46 | Cardiology Progress Note ---
Date of Encounter: 08/11/18 Time of Encounter: 12:43 Assessment and Plan (1) Ventricular tachycardia Current Visit: Yes Status: Resolved Presented with ventricular tachycardia, defibrillator in the ER. Initially on amiodarone, which has been stopped. Continue beta brando therapy. Ischemic evaluation performed interventional cardiology, medical therapy has been recommended. Amiodarone discontinued by EP. Secondary prevention ICD placed. (2) CAD (coronary artery disease) Current Visit: Yes Status: Chronic Plan as above. On ASA, statin, beta brando, losartan. Risk factor modification emphasized. Qualifiers: Qualified Code(s): I25.10 - Atherosclerotic heart disease of [place] coronary artery without angina pectoris (3) Ischemic cardiomyopathy Current Visit: Yes Status: Acute [place] CAD, unchanged compared to previous reports. Ischemic cardiomyopathy. Recommend continue aspirin, atorvastatin, losartan, and Toprol therapy. Transition Lasix to 40 mg by mouth daily upon discharge. Consider Aldactone in the future if able. CHF education provided, including a low sodium/2 L daily fluid restricted diet. Outpatient outpatient follow-up with cardiology. No further inpatient recommendations. Cardiology will sign off. Please call with any questions or concerns. Discussion w patient/family: The assessment and plan as outlined above was discussed with the patient and/or family members who expressed understanding and agreement. All questions were answered. Thank you for involving us in the care of your patient. Please call with any questions. Subjective Principal diagnosis: Ventricular tachycardia, NSTEMI Interval history: Patient seen and examined earlier today. Patient responded well to diuresis. Oxygen requirements have decreased. No chest pain or discomfort. No arrhythmias. Incision is healing nicely. Objective Vital Signs, Last 4 Hours Temp Pulse Resp BP Pulse Ox 08/11/18 09:55 97.9 F 82 18 142/81 94 General: Conversant, No Apparent Distress HEENT: Atraumatic, Normocephaly, Mucus Membranes Moist Neck: No JVD, Normal carotid pulses Cardiac: Reg Rate and Rhythm, Normal S1 and S2, No Murmur, Other (Incision is clean and dry. Steri-Strips are in place. No erythema, redness, or swelling noted.) Lungs: Normal Breath Sounds, No Wheeze, Rales, Rhonchi Neuro: Alert and responsive, No focal deficits noted Abdomen: Soft, Non-Tender Skin: No rashes noted on visualized skin Musculoskeletal: No Chest Wall Tenderness Extremities: No Clubbing, No Cyanosis, No Edema Results 08/11/18 03:37 08/11/18 03:37 Lab Results 08/11/18 08/11/18 03:37 03:37 WBC 12.5 H Hgb 14.5 Hct 41.8 Plt Count 125 L Sodium 138 Potassium 3.2 L Chloride 101 Carbon Dioxide 26 BUN 18 Creatinine 0.92 Glucose 97 Calcium 9.2 Magnesium 1.9 - Imaging and Cardiology Echo: report reviewed Cardiac cath: report reviewed - EKG Interpretation EKG results cardiology: personally reviewed Consult Discharge Plan - Plan Referrals: [facility] [Primary Care Provider] - Prescriptions: Furosemide [Lasix] 40 mg PO DAILY 30 Days #30 tab Metoprolol XL (24 HR) Succ [Toprol Xl] 25 mg PO DAILY 30 Days #30 tab.er.24h
[2018-08-11 13:09] VITALS: BP 139/81
--- NOTE | 2018-08-11 17:00 | Electrocardiograph Report ---
[place] [id number] Test Date: 2018-08-07 Pat Name: Leonard Nj Department: 112 Room: 2N04 Gender: M Manager Bank: JENAE : 1945 Requested By: Raghavendra Nathan Order Number: [id number] Reading MD: Genaro Cifuentes Measurements Intervals [place] Rate: 59 P: -9 VA: 163 QRS: -8 QRSD: 101 T: 234 QT: 432 QTc: 432 Interpretive Statements SINUS BRADYCARDIA LOW QRS VOLTAGE IN PRECORDIAL LEADS SEPTAL MYOCARDIAL INFARCTION, PROBABLY OLD INFERIOR MYOCARDIAL INFARCTION, OF INDETERMINATE AGE Electronically Signed On 08-11-2018 16:58:58 EDT by Genaro Cifuentes
== END 2018-08-11 16:15 | disposition home or self-care (01) | DRG 245 ==
LOC: ICNU 23:03 → EMEROOARM 23:03 → ICNU 08-07 02:07 → SUATTDRO 08-07 04:50 → 2NNU 08-07 19:16
PROVIDERS: ADMIT Internal Medicine; ATTEND Student in an Organized Health Care Education/Training Program

== ENCOUNTER 2019-07-16 16:00 | Inpatient (IN) ==
--- NOTE | 2019-07-16 16:04 | Emergency Department Note ---
Disposition Clinical Impression: V tach, Hypokalemia Disposition: Admitted As Inpatient Condition: Good Time of Disposition: 17:54 General Adult HPI - General Stated complaint: "Defib Firing" Time Seen by Provider: 07/16/19 16:03 Nursing Notes Reviewed: Yes Vital Signs Reviewed: Yes - History of Present Illness HPI Narrative: 73-year-old male says emergency department concern for feeling it kicked in the chest. Patient states that he has a defibrillator and it was outside at a [employer] [place] walking around, he stated that he felt kicked in the chest was a little lightheaded, but never passed out completely. Patient did not hit the ground. Does not chest pain recently, no shortness of breath, no fevers, nausea, vomiting, abdominal pain. - Related Data Home Medications Medication Instructions Recorded Confirmed Clopidogrel [Plavix] 75 mg PO DAILY 08/07/18 07/17/19 Isosorbide MONOnitrate (24 HR) 60 mg PO DAILY 08/07/18 07/17/19 [Imdur] Losartan [Cozaar] 25 mg PO DAILY 08/07/18 07/17/19 Ranitidine HCl [Heartburn Relief] 150 mg PO HS 08/07/18 07/17/19 amLODIPine [Norvasc] 10 mg PO DAILY 08/07/18 07/17/19 Atorvastatin Calcium 80 mg PO HS 10/10/18 07/17/19 Aspirin Enteric Coated [Aspirin EC] 81 mg PO DAILY 06/17/19 07/17/19 Previous Rx's Medication Instructions Recorded Furosemide [Lasix] 40 mg PO DAILY 30 Days #30 tab 08/11/18 Metoprolol XL (24 HR) Succ [Toprol 25 mg PO DAILY 30 Days #30 08/11/18 Xl] tab.er.24h Amiodarone HCl 400 mg PO DAILY #30 tablet 07/19/19 Allergies Allergy/AdvReac Type Severity Reaction Status Date / Time No Known Allergies Allergy Verified 06/17/19 07:00 All systems ED: reviewed and negative except as stated. Review of Systems: As Per HPI Constitutional: Denies: fever, chills Cardiovascular: Reports: syncope. Denies: chest pain Respiratory: Denies: cough, dyspnea Gastrointestinal: Denies: abdominal pain, nausea, vomiting Genitourinary: Denies: dysuria Musculoskeletal: Denies: back pain Past Medical History - Past Medical History Attestation: Yes The following information was validated with the patient. Medical history: Reports: COPD, coronary artery disease, GERD, hyperlipidemia, hypertension, myocardial infarction Surgical history: Reports: cholecystectomy, pacemaker Psychiatric history: Reports: no psych history - Social History Smoking Status: Former smoker Smokeless Tobacco Status: No Alcohol use: Reports: none Drug use: Reports: none Physical Exam - General Limitations: no limitations General appearance: alert, in no apparent distress - Head Head exam: normocephalic - Eye Eye exam: Present: EOMI - ENT ENT exam: mucous membranes moist - Neck Neck exam: Present: trachea midline - Chest Chest inspection: Present: symmetric chest wall rise - Respiratory Respiratory exam: Present: normal lung sounds bilaterally. Absent: respiratory distress, accessory muscle use - Cardiovascular Cardiovascular exam: Present: regular rate, normal rhythm, normal heart sounds - Abdominal Exam Abdominal exam: Present: soft, Non-Tender. Absent: distention, guarding, rebound, rigidity - Extremities Exam Extremities exam: Present: normal capillary refill - Back Exam Back exam: Present: full ROM - Neurological Exam Neurological exam: Present: alert, oriented X3 - Psychiatric Psychiatric exam: Present: normal affect, normal mood - Skin Skin exam: Present: warm, dry, intact, normal color. Absent: rash Course Vital Signs Temperature 98.7 F 07/16/19 16:06 Pulse Rate 78 07/16/19 16:06 Respiratory Rate 18 07/16/19 16:06 Blood Pressure 122/75 07/16/19 16:06 O2 Sat by Pulse Oximetry 95 07/16/19 16:06 Temperature 97.6 F 07/16/19 19:05 Pulse Rate 68 07/16/19 19:05 Respiratory Rate 16 07/16/19 19:05 Blood Pressure 135/52 07/16/19 19:05 O2 Sat by Pulse Oximetry 96 07/16/19 19:05 Oxygen Delivery Oxygen Delivery Room Air Medical Decision Making - [facility] Narrative Medical decision making narrative: 73-year-old male presents emergency department with concern for defibrillator activation today. Patient hemodynamically stable not in acute distress. EKG would not ischemic ST changes. Troponin negative. Chest x-ray negative. After speaking to the franchise sales representative, there was an episode where patient had V. tach up to 190. His AICD attempted to overdrive pace him. It did not work, so it defibrillated him. I spoke with the sand mill operator core sand and he stated that his potassium needed to be 4.0 in the setting of having an AICD. He was given 40 mEq now as he was mildly hypokalemic. His magnesium was normal. Admitted to medicine with consult a sand mill operator core sand. Patient hemodynamically stable at time of admission. - Lab Data Result diagrams: 07/17/19 04:51 07/18/19 05:15 Lab Results 07/16/19 07/16/19 07/16/19 Range/Units 16:04 16:04 16:14 WBC 10.7 (4.3-11.1) K/mcL RBC 5.46 (4.19-5.50) M/mcL Hgb 16.0 (12.9-16.9) g/dL Hct 47.0 (37.5-50.1) % MCV 86.1 (83.0-100.0) fL MCH 29.3 (28.0-33.3) pg MCHC 34.0 (31.6-35.5) g/dL RDW 14.5 (11.5-14.5) % Plt Count 195 (140-400) K/mcL MPV 10.1 (9.4-12.4) fL Immature Gran % 0.4 (0-4) % Seg Neutrophils % 45.9 % Lymphocytes % 40.7 % Monocytes % 8.7 % Eosinophils % 3.5 % Basophils % 0.8 % Neutrophils # 4.9 (1.6-8.9) K/mcL Lymphocytes # 4.4 (0.6-4.6) K/mcL Monocytes # 0.9 (0.0-1.3) K/mcL Eosinophils # 0.4 (0.0-0.6) K/mcL Basophils # 0.1 (0.0-0.2) K/mcL PT 12.4 H (9.4-12.1) Seconds INR 1.1 APTT 33.7 (26.0-36.0) Seconds Sodium (136-145) mEq/L Potassium (3.5-5.1) mEq/L Chloride (98-107) mEq/L Carbon Dioxide (23-29) mEq/L BUN (8-23) mg/dL Creatinine (0.70-1.30) mg/dL Est GFR ( Amer) (> 60) Est GFR (Non-Af Amer) (> 60) BUN/Creatinine Ratio (6-26) Glucose (70-105) mg/dL Calculated Osmolality (280-300) Calcium (8.6-10.3) mg/dL Magnesium (1.6-2.6) mg/dL Troponin I (< 0.04) ng/mL B-Natriuretic Peptide 108 H (Less than 100) pg/mL 07/16/19 Range/Units 16:14 WBC (4.3-11.1) K/mcL RBC (4.19-5.50) M/mcL Hgb (12.9-16.9) g/dL Hct (37.5-50.1) % MCV (83.0-100.0) fL MCH (28.0-33.3) pg MCHC (31.6-35.5) g/dL RDW (11.5-14.5) % Plt Count (140-400) K/mcL MPV (9.4-12.4) fL Immature Gran % (0-4) % Seg Neutrophils % % Lymphocytes % % Monocytes % % Eosinophils % % Basophils % % Neutrophils # (1.6-8.9) K/mcL Lymphocytes # (0.6-4.6) K/mcL Monocytes # (0.0-1.3) K/mcL Eosinophils # (0.0-0.6) K/mcL Basophils # (0.0-0.2) K/mcL PT (9.4-12.1) Seconds INR APTT (26.0-36.0) Seconds Sodium 140 (136-145) mEq/L Potassium 3.4 L (3.5-5.1) mEq/L Chloride 105 (98-107) mEq/L Carbon Dioxide 26 (23-29) mEq/L BUN 15 (8-23) mg/dL Creatinine 1.49 H (0.70-1.30) mg/dL Est GFR ( Amer) 56 L (> 60) Est GFR (Non-Af Amer) 46 L (> 60) BUN/Creatinine Ratio 10 (6-26) Glucose 148 H (70-105) mg/dL Calculated Osmolality 294 (280-300) Calcium 9.5 (8.6-10.3) mg/dL Magnesium 2.2 (1.6-2.6) mg/dL Troponin I 0.03 (< 0.04) ng/mL B-Natriuretic Peptide (Less than 100) pg/mL - EKG Data EKG #1 EKG attestation: Yes I reviewed and interpreted this EKG. EKG shows normal: sinus rhythm Rate: normal Rhythm: NSR [place]/QRS: normal Interpretation: no acute changes Attestation Statement - Attestation Attestation: I examined this patient and my medical decision-making was reviewed with the Resident Physician. I agree with the documented findings, disposition and tr eatment plan as described except to the extent set forth below. Patient did has a shock delivered however currently complaints of no complaints. NO chest pain or SOB. Regular rate and rhythm on exam, clear breath sounds. Patient has appropriate firing for V tach episode. Otherwise patient has mild hypokalemia. Patient will be admitted for further cardiac eval. I do agree to the resident's interruption of the EKG.
[2019-07-16 16:52] LABS: Basophils # 0.1 K/mcL (0.0-0.2); Basophils % 0.8 %; Eosinophils # 0.4 K/mcL (0.0-0.6); Eosinophils % 3.5 %; Immature Granulocytes % 0.4 % (0-4); Lymphocytes # 4.4 K/mcL (0.6-4.6); Lymphocytes % 40.7 %; Mean Corpuscular Hemoglobin 29.3 pg (28.0-33.3); Mean Corpuscular Volume 86.1 fL (83.0-100.0); Mean Platelet Volume 10.1 fL (9.4-12.4); Monocytes # 0.9 K/mcL (0.0-1.3); Monocytes % 8.7 %; Neutrophils # 4.9 K/mcL (1.6-8.9); Platelet Count 195 K/mcL (140-400); Red Blood Count 5.46 M/mcL (4.19-5.50); Red Cell Distribution Width 14.5 % (11.5-14.5); Segmented Neutrophils % 45.9 %; White Blood Count 10.7 K/mcL (4.3-11.1)
[2019-07-16 17:03] LABS: INR 1.1; Prothrombin Time 12.4 Seconds (9.4-12.1)
[2019-07-16 17:06] LABS: Activated Partial Thrombo Time 33.7 Seconds (26.0-36.0)
[2019-07-16 17:21] LABS: Calcium 9.5 mg/dL (8.6-10.3); Potassium 3.4 mEq/L (3.5-5.1); Troponin I 0.03 ng/mL (< 0.04)
[2019-07-16 17:46] LABS: Magnesium 2.2 mg/dL (1.6-2.6)
[2019-07-16] MEDS ORDERED: Naloxone 0.4 MG/ML INJ IVP PRN (18:11)
--- NOTE | 2019-07-16 18:19 | Internal Med History&Physical ---
Date of Encounter: 07/16/19 Time of Encounter: 18:20 Internal Medicine - H&P: HPI Chief complaint: AICD fired Admitted From: Emergency Dept Plans for Post Hospital Care: Home History of present illness: Mr. Nj is a 73 year old male with a past medical history significant for ischemic cardiomyopathy, CAD status post DC in 2007 with 8 stents, PAD status post bilateral bypass graft, AICD placement in last July, presented to the hospital after his AICD fired. Patient was going for the car wash and this happened. Denies any chest pain, shortness of breath preceding or following the event. Denies loss of consciousness, did mention that he was feeling that he will pass out and he was feeling lightheaded. Denies fever, chills, rigors in the past few days. Denies any other events of AICD fired in the last 1 year. In the emergency department, patient was hemodynamically stable. Laboratory workup showed potassium of 3.4 Chest x-ray was normal. Interrogation of AICD showed ventricle tachycardia as per discussion with ED physician. EKG obtained in the emergency department showed PVCs but otherwise normal Patient was admitted for further management. Past Med Surg Social Fam HX - Past Medical History Medical history: COPD, coronary artery disease, GERD, hyperlipidemia, hypertension, myocardial infarction Additional medical history: Pt very poor historian. STates "I take 9 pills a day, but I don't know what they are for" Psychiatric history: no psych history - Past Surgical History Surgical History: cholecystectomy, pacemaker Additional surgical history: 9 heart stents. AICD. femoral bypass - Social History Smoking Status: Former smoker Smokeless Tobacco Status: No Alcohol use: none Drug use: none - Additional Family History Additional family history: Reviewed and non contributory Internal Medicine - H&P: Meds Clopidogrel [Plavix] 75 mg PO DAILY 08/07/18 [History] Isosorbide MONOnitrate (24 HR) [Imdur] 60 mg PO DAILY 08/07/18 [History] Losartan [Cozaar] 25 mg PO DAILY 08/07/18 [History] Ranitidine HCl [Heartburn Relief] 150 mg PO HS 08/07/18 [History] amLODIPine [Norvasc] 10 mg PO DAILY 08/07/18 [History] Furosemide [Lasix] 40 mg PO DAILY 30 Days #30 tab 10/14/18 [Rx] Metoprolol XL (24 HR) Succ [Toprol Xl] 25 mg PO DAILY 30 Days #30 tab.er.24h 08/11/18 [Rx] Atorvastatin Calcium 80 mg PO HS 10/10/18 [History] Aspirin Enteric Coated [Aspirin EC] 81 mg PO DAILY 06/17/19 [History] Allergy/AdvReac Type Severity Reaction Status Date / Time No Known Allergies Allergy Verified 06/17/19 07:00 All Systems PM: A 10-system review of systems was performed and is negative for pertinent findings except as documented above in the HPI. Review of systems: General: Negative for fever, chills, rigors. HEENT: Negative for neck swelling, discharge from nose, discharge from ears. EYES: Negative for any discharge from the eyes. Respiratory: Negative for shortness of breath, orthopnea, exertional dyspnea. Cardiovascular: See HPI Gastrintestical: Negative for diarrhea, constipation, blood in stools. Genitourinary: Negative for dysuria, hematuria, nocturia, increased frequency of urine. Hematological: Negative for blood loss, negative for active cancer. Neurological: Negative for headache, dizziness, blurry vision, loss os power and sensations. Endocrinology: Negative for constipation, polyuria, polydipsia. Integumentary: Negative for rash, wounds, ulcers. Psychiatric: Negative for anxiety or depression. - Constitutional Vitals: Temp Pulse Resp BP Pulse Ox 98.7 F 69 18 133/74 99 07/16/19 16:06 07/16/19 17:23 07/16/19 17:23 07/16/19 17:23 07/16/19 17:23 Exam: General: Alert and oriented, no physical distress, able to follow commands. HEENT: No thyromegaly, no lymphadenopathy, no discharge. Eyes: No discharge. Normal conjuctiva, no icterus Respiratory: Normal vesicular breathing, no added sounds, breathing equal in both sides. CVS: Normal heart sounds, no murmurs, regular rhthm, no edema Extremities: No peripheral edema, peripheral pulses intact. Lymph nodes: No lymphadenopathy Gastrointestinal: Soft, nontender abdomen, normal abdominal sounds. No distention noted. Genitourinary: No paravertebral tenderness. Skin: No rash, ulcers or wound. Neurological: Alert and oriented. No focal deficits. Cranial nerves II-XII intact. Internal Med - H&P Results - Labs CBC & Chem 7: 07/16/19 16:14 07/16/19 16:14 Labs: Short CBC 07/16/19 07/16/19 07/16/19 Range/Units 16:04 16:04 16:14 WBC 10.7 (4.3-11.1) K/mcL RBC 5.46 (4.19-5.50) M/mcL Hgb 16.0 (12.9-16.9) g/dL Hct 47.0 (37.5-50.1) % MCV 86.1 (83.0-100.0) fL MCH 29.3 (28.0-33.3) pg MCHC 34.0 (31.6-35.5) g/dL RDW 14.5 (11.5-14.5) % Plt Count 195 (140-400) K/mcL MPV 10.1 (9.4-12.4) fL Immature Gran % 0.4 (0-4) % Seg Neutrophils % 45.9 % Lymphocytes % 40.7 % Monocytes % 8.7 % Eosinophils % 3.5 % Basophils % 0.8 % Neutrophils # 4.9 (1.6-8.9) K/mcL Lymphocytes # 4.4 (0.6-4.6) K/mcL Monocytes # 0.9 (0.0-1.3) K/mcL Eosinophils # 0.4 (0.0-0.6) K/mcL Basophils # 0.1 (0.0-0.2) K/mcL PT 12.4 H (9.4-12.1) Seconds INR 1.1 APTT 33.7 (26.0-36.0) Seconds Sodium (136-145) mEq/L Potassium (3.5-5.1) mEq/L Chloride (98-107) mEq/L Carbon Dioxide (23-29) mEq/L BUN (8-23) mg/dL Creatinine (0.70-1.30) mg/dL Est GFR ( Amer) (> 60) Est GFR (Non-Af Amer) (> 60) BUN/Creatinine Ratio (6-26) Glucose (70-105) mg/dL Calculated Osmolality (280-300) Calcium (8.6-10.3) mg/dL Magnesium (1.6-2.6) mg/dL Troponin I (< 0.04) ng/mL B-Natriuretic Peptide 108 H (Less than 100) pg/mL 07/16/19 Range/Units 16:14 WBC (4.3-11.1) K/mcL RBC (4.19-5.50) M/mcL Hgb (12.9-16.9) g/dL Hct (37.5-50.1) % MCV (83.0-100.0) fL MCH (28.0-33.3) pg MCHC (31.6-35.5) g/dL RDW (11.5-14.5) % Plt Count (140-400) K/mcL MPV (9.4-12.4) fL Immature Gran % (0-4) % Seg Neutrophils % % Lymphocytes % % Monocytes % % Eosinophils % % Basophils % % Neutrophils # (1.6-8.9) K/mcL Lymphocytes # (0.6-4.6) K/mcL Monocytes # (0.0-1.3) K/mcL Eosinophils # (0.0-0.6) K/mcL Basophils # (0.0-0.2) K/mcL PT (9.4-12.1) Seconds INR APTT (26.0-36.0) Seconds Sodium 140 (136-145) mEq/L Potassium 3.4 L (3.5-5.1) mEq/L Chloride 105 (98-107) mEq/L Carbon Dioxide 26 (23-29) mEq/L BUN 15 (8-23) mg/dL Creatinine 1.49 H (0.70-1.30) mg/dL Est GFR ( Amer) 56 L (> 60) Est GFR (Non-Af Amer) 46 L (> 60) BUN/Creatinine Ratio 10 (6-26) Glucose 148 H (70-105) mg/dL Calculated Osmolality 294 (280-300) Calcium 9.5 (8.6-10.3) mg/dL Magnesium 2.2 (1.6-2.6) mg/dL Troponin I 0.03 (< 0.04) ng/mL B-Natriuretic Peptide (Less than 100) pg/mL BMP 07/16/19 16:14 Sodium 140 Potassium 3.4 L Chloride 105 Carbon Dioxide 26 BUN 15 Creatinine 1.49 H Glucose 148 H Calcium 9.5 Cardiac Enzymes 07/16/19 Range/Units 16:14 Troponin I 0.03 (< 0.04) ng/mL - Impressions ITS Impressions Chest X-Ray 07/16/19 16:32 IMPRESSION: No acute process. Stable AICD/pacer device. D/ / Eugene Ackerman MD / Eugene Ackerman MD Interpreting Provider: Eugene Ackerman MD - Assessment and Plan (1) Ventricular tachycardia Current Visit: Yes Status: Acute Assessment and plan: Interrogation of AICD showed ventricular tachycardia. Initially tried to pace but then it fired. Troponin within normal limits. Potassium of 3.4, magnesium of 2.2. Patient was given 40 m of potassium in the emergency department. Order 40 meq of potassium to keep the potassium above 4. Repeat BMP tomorrow. Repeat troponin to rule out ACS. Cardiolgoy consult has been placed. Order echocardiography. Telemetry (2) AICD (automatic cardioverter/defibrillator) present Current Visit: Yes Status: Acute Assessment and plan: Was placed in jul 2018, first event today No prvious complications or concerns (3) Ischemic cardiomyopathy Current Visit: No Status: Acute Assessment and plan: Most recent echo was in 2017 which showed reduced ejection fraction of 40-45% with mild global left ventricular systolic dysfunction and moderate left ventricular diastolic dysfunction. Patient is currently on Lasix at home. We will continue. Obtain echocardiogram because of the recent events. Continue metoprolol and losartan (4) CAD (coronary artery disease) Current Visit: No Status: Chronic Assessment and plan: History of CAD, status post multiple stents back in 2007. Cardiac catheter from 08/07/2018 showed severe one-vessel coronary artery disease, occluded left circumflex with collateral and contralateral collaterals, no interventions were done. Currently on maximal medical therapy with aspirin, Plavix, metoprolol, losartan. No signs of acute ACS. Trend troponin. Continue the current medications. Qualifiers: Coronary Disease-Associated Artery/Lesion type: unspecified vessel or lesion type [place] vs. transplanted heart: [place] heart Associated angina: without angina Qualified Code(s): I25.10 - Atherosclerotic heart disease of [place] coronary artery without angina pectoris (5) PAD (peripheral artery disease) Current Visit: No Status: Chronic Assessment and plan: Status post bilateral bypass surgery. Continue medical management. (6) HTN (hypertension) Current Visit: No Status: Acute Assessment and plan: Blood pressure stable. Continue home medications. Qualifiers: Hypertension type: essential hypertension Qualified Code(s): I10 - Essential (primary) hypertension (7) Hypokalemia Current Visit: Yes Status: Acute Assessment and plan: K of 3.4 Rpeleatd wihr 40 Will give 40 meq more to keep levels above 4 Repeat levels tomorrow - Time Spent With Patient Total time spent is greater than 50% in coordination of care (as documented) at patient's floor/unit and/or counseling patient:
[2019-07-16] MEDS: Famotidine 20 MG TABLET PO SCH (20:31)
[2019-07-17] MEDS: *HR* Heparin 5,000 UNIT/ML VIAL SQ SCH ×2 (04:51→18:46)
[2019-07-17 05:15] LABS: Basophils # 0.1 K/mcL (0.0-0.2); Basophils % 0.8 %; Eosinophils # 0.4 K/mcL (0.0-0.6); Eosinophils % 4.6 %; Hematocrit 47.1 % (37.5-50.1); Hemoglobin 15.6 g/dL (12.9-16.9); Immature Granulocytes % 0.3 % (0-4); Lymphocytes # 3.9 K/mcL (0.6-4.6); Lymphocytes % 40.7 %; Mean Corpuscular HGB Conc 33.1 g/dL (31.6-35.5); Mean Corpuscular Hemoglobin 29.6 pg (28.0-33.3); Mean Corpuscular Volume 89.4 fL (83.0-100.0); Mean Platelet Volume 9.9 fL (9.4-12.4); Monocytes % 10.4 %; Neutrophils # 4.1 K/mcL (1.6-8.9); Platelet Count 173 K/mcL (140-400); Red Blood Count 5.27 M/mcL (4.19-5.50); Red Cell Distribution Width 14.5 % (11.5-14.5); Segmented Neutrophils % 43.2 %; White Blood Count 9.5 K/mcL (4.3-11.1)
[2019-07-17 05:15] LABS: VBG Ionized Calcium 1.23 mmol/L (1.15-1.35)
[2019-07-17 05:39] LABS: BUN/Creatinine Ratio 13 (6-26); Blood Urea Nitrogen 18 mg/dL (8-23); Calcium 9.7 mg/dL (8.6-10.3); Carbon Dioxide 27 mEq/L (23-29); Chloride 106 mEq/L (98-107); Glucose 117 mg/dL (70-105); Magnesium 2.4 mg/dL (1.6-2.6); Osmolality,Calculated 293 (280-300); Phosphorous 3.4 mg/dL (2.7-4.5); Potassium 4.3 mEq/L (3.5-5.1); Sodium 140 mEq/L (136-145); eGFR For African Americans > 60 (> 60); eGFR For Non-African Americans 52 (> 60)
[2019-07-17] MEDS: amLODIPine 5 MG TABLET PO SCH (09:30)
[2019-07-17] MEDS: Metoprolol XL (24 HR) Succ 25 MG TAB.ER.24H PO SCH (09:30)
[2019-07-17] MEDS: Isosorbide MONOnitrate (24 HR) 60 MG TAB.ER.24H PO SCH (09:30)
[2019-07-17] MEDS: Furosemide 20 MG TABLET PO SCH (09:30)
[2019-07-17] MEDS: Aspirin Enteric Coated 81 MG Tablet PO SCH (09:30)
--- NOTE | 2019-07-17 12:29 | Electrophysiology Consult Note ---
<Rema Rios Marito - Last Filed: 07/17/19 12:51> Date of Encounter: 07/17/19 Time of Encounter: 10:00 Assessment and Plan (1) Ventricular tachycardia Current Visit: Yes Status: Acute Patient presented to the ED s/p ICD shock for VT. Successful ATP on 07/07 and 07/08--pt. asymptomatic. Reviewed device check with Dr. Kilgore, appropriate shock for VT. Upon arrival K was 3.4. Replaced. Keep K >4.0, Mg >2.0. Continue BB, Toprol XL. TTE pending. Most recent [facility] 07/2018--known obstructive CAD, medical therapy recommended. No recurrent VT or NSVT noted overnight. Discussed with Dr. Kilgore; will start Amiodarone 400 mg BID as inpatient; decrease Amiodarone to 400 mg daily upon discharge. Follow-up in the outpatient setting, will likely decrease to 200 mg daily after 1 month. (2) AICD (automatic cardioverter/defibrillator) present Current Visit: Yes Status: Acute as above (3) Ischemic cardiomyopathy Current Visit: No Status: Acute Known hx of ICMP s/p ICD. Last TTE demonstrated LVEF 45%. Appears euvolemic upon exam. Continue GDMT including Toprol XL and Losartan. Discussion w patient/family: The assessment and plan as outlined above was discussed with the patient and/or family members who expressed understanding and agreement. All questions were answered. Thank you for involving us in the care of your patient. Please call with any questions. The patient will be discussed and reviewed with Dr. Kilgore; changes to be made accordingly. History of Present Illness Consult date: 07/17/19 Requesting physician: Jimmy Carrillo Consult reason: ICD shock Chief complaint: ICD shock History of present illness: Mr. Nj is a 73-year-old with a history of CAD, prior PCI (8 stents per patient, last in 2006), PAD s/p LE bypass, essential HTN. Sustained VT in 07/2018 s/p cardioversion, [facility], EF 35%, and secondary prevention ICD placed who presented to the ED after ICD shock yesterday while washing his car. He reports normal state of health up until event, no chest pain or discomfort reported. Reports medication compliance. He notes he was walking when his ICD went off, had blurred vision for a moment. He is unsure if he lost consciousness, however he did not fall. He then went home, told his and came to the ED for further evaluation. Previous testing: TTE 01/03/2019: LVEF 45%. Mild global LV systolic dysfunction. Mild LV diastolic dysfunction. Normal RV size and function. Mild to moderate MR. Mild TR. Device lead visualized in the right atrium and ventricle. LHC 08/07/2018: LVEF 30-35%. Left main distal 40% stenosis. LAD mid 30% stenosis. D1 50% stenosis. Circumflex small vessel, proximal occlusion with ipsilateral and contralateral collaterals. RCA distal 50% stenosis. RPDA 60-70% stenosis, diffusely diseased and small vessel. TTE 08/07/2018: LVEF 40-45%. Normal LV chamber size. Global systolic dysfunction. Moderate LV diastolic dysfunction. Normal RV size and function. Mild to moderate MR. No pulmonary hypertension. Past Med Surg Social Fam HX - Past Medical History Attestation: Yes The following information was validated with the patient. Source: patient Medical history: COPD, coronary artery disease, GERD, hyperlipidemia, hypertension, myocardial infarction Additional medical history: Pt very poor historian. STates "I take 9 pills a day, but I don't know what they are for" Psychiatric history: no psych history - Past Surgical History Surgical History: cholecystectomy, pacemaker Additional surgical history: 9 heart stents. AICD. femoral bypass - Social History Smoking Status: Former smoker Smokeless Tobacco Status: No Alcohol use: none Drug use: none - Family History Mother History Unknown: Yes Father History Unknown: Yes Medications and Allergies Clopidogrel [Plavix] 75 mg PO DAILY 08/07/18 [History] Isosorbide MONOnitrate (24 HR) [Imdur] 60 mg PO DAILY 08/07/18 [History] Losartan [Cozaar] 25 mg PO DAILY 08/07/18 [History] Ranitidine HCl [Heartburn Relief] 150 mg PO HS 08/07/18 [History] amLODIPine [Norvasc] 10 mg PO DAILY 08/07/18 [History] Furosemide [Lasix] 40 mg PO DAILY 30 Days #30 tab 08/11/18 [Rx] Metoprolol XL (24 HR) Succ [Toprol Xl] 25 mg PO DAILY 30 Days #30 tab.er.24h 08/11/18 [Rx] Atorvastatin Calcium 80 mg PO HS 10/10/18 [History] Aspirin Enteric Coated [Aspirin EC] 81 mg PO DAILY 06/17/19 [History] Allergy/AdvReac Type Severity Reaction Status Date / Time No Known Allergies Allergy Verified 06/17/19 07:00 All Systems Review: The remainder of the systems were reviewed and are negative - Cardiovascular Cardiovascular: as per HPI Physical Examination General: Conversant, No Apparent Distress HEENT: Atraumatic, Normocephaly, Mucus Membranes Moist Cardiac: Reg Rate and Rhythm, Normal S1 and S2 Lungs: Normal Breath Sounds Neuro: Alert and responsive Abdomen: Soft Skin: No rashes noted on visualized skin Musculoskeletal: No Chest Wall Tenderness Extremities: No Edema, Normal Pulses Results 07/17/19 04:51 07/17/19 04:51 Lab Results 07/16/19 07/16/19 07/16/19 16:04 16:04 16:14 WBC 10.7 Hgb 16.0 Hct 47.0 Plt Count 195 INR 1.1 APTT 33.7 Sodium Potassium Chloride Carbon Dioxide BUN Creatinine Glucose Calcium Magnesium Troponin I B-Natriuretic Peptide 108 H 07/16/19 07/16/19 07/17/19 16:14 22:20 04:51 WBC 9.5 Hgb 15.6 Hct 47.1 Plt Count 173 INR APTT Sodium 140 Potassium 3.4 L Chloride 105 Carbon Dioxide 26 BUN 15 Creatinine 1.49 H Glucose 148 H Calcium 9.5 Magnesium 2.2 Troponin I 0.03 0.03 B-Natriuretic Peptide 07/17/19 04:51 WBC Hgb Hct Plt Count INR APTT Sodium 140 Potassium 4.3 D Chloride 106 Carbon Dioxide 27 BUN 18 Creatinine 1.35 H Glucose 117 H Calcium 9.7 Magnesium 2.4 Troponin I B-Natriuretic Peptide Active Medications Amiodarone HCl (Cordarone) 400 mg PO BID [facility] Stop: 01/16/20 09:01 Amlodipine Besylate (Norvasc) 10 mg PO DAILY [facility]; Protocol Stop: 01/16/20 09:01 Aspirin (Aspirin Ec) 81 mg PO DAILY [facility] Stop: 01/16/20 09:01 Atorvastatin Calcium (Lipitor) 80 mg PO HS [facility] Stop: 01/15/20 21:01 Last Admin: 07/16/19 20:31 Dose: 80 mg Documented by: Clopidogrel Bisulfate (Plavix) 75 mg PO DAILY [facility] Stop: 01/16/20 09:01 Famotidine (Pepcid) 20 mg PO HS [facility] Stop: 01/15/20 21:01 Last Admin: 07/16/19 20:31 Dose: 20 mg Documented by: Furosemide (Lasix) 40 mg PO DAILY [facility] Stop: 01/16/20 09:01 Heparin Sodium (Porcine) (Heparin) 5,000 unit SQ Q12HCO [facility]; Protocol Stop: 01/16/20 06:01 Last Admin: 07/17/19 04:51 Dose: 5,000 unit Documented by: Isosorbide Mononitrate (Imdur) 60 mg PO DAILY [facility] Stop: 01/16/20 09:01 Losartan Potassium (Cozaar) 25 mg PO DAILY [facility]; Protocol Stop: 01/16/20 09:01 Metoprolol Succinate (Toprol Xl) 25 mg PO DAILY [facility] Stop: 01/16/20 09:01 Naloxone HCl (Narcan) 0.4 mg IVP Q2MPRN PRN PRN Reason: SEE COMMENTS Stop: 01/15/20 18:12 - Imaging and Cardiology Echo: report reviewed Cardiac cath: report reviewed Other Results: 12 hour tele: avg HR=65 paced rhythm. No NSVT/VT - EKG Interpretation EKG results cardiology: personally reviewed Consult Discharge Plan - Plan [facility]errals: [facility]Primary Care Provider[facility] - <Joseph Kilgore - Last Filed: 07/17/19 13:55> Date of Encounter: 07/17/19 - Attending Attestation I have personally performed a face to face evaluation on this patient. I have reviewed and agree with the care plan. History and Exam by me shows: Recent ICD shock for VT. Two previous episodes of VT were terminated with ATP. Will add amio. Assessment and Plan Discussion w patient/family: The assessment and plan as outlined above was discussed with the patient and/or family members who expressed understanding and agreement. All questions were answered. Thank you for involving us in the care of your patient. Please call with any questions. History of Present Illness History of present illness: Mr. Nj is a 73 year old male All Systems Review: The remainder of the systems were reviewed and are negative Results 07/17/19 04:51 07/17/19 04:51 Lab Results 07/16/19 07/16/19 07/16/19 16:04 16:04 16:14 WBC 10.7 Hgb 16.0 Hct 47.0 Plt Count 195 INR 1.1 APTT 33.7 Sodium Potassium Chloride Carbon Dioxide BUN Creatinine Glucose Calcium Magnesium Troponin I B-Natriuretic Peptide 108 H 07/16/19 07/16/19 07/17/19 16:14 22:20 04:51 WBC 9.5 Hgb 15.6 Hct 47.1 Plt Count 173 INR APTT Sodium 140 Potassium 3.4 L Chloride 105 Carbon Dioxide 26 BUN 15 Creatinine 1.49 H Glucose 148 H Calcium 9.5 Magnesium 2.2 Troponin I 0.03 0.03 B-Natriuretic Peptide 07/17/19 04:51 WBC Hgb Hct Plt Count INR APTT Sodium 140 Potassium 4.3 D Chloride 106 Carbon Dioxide 27 BUN 18 Creatinine 1.35 H Glucose 117 H Calcium 9.7 Magnesium 2.4 Troponin I B-Natriuretic Peptide
--- NOTE | 2019-07-17 13:36 | Internal Med Progress Note ---
Hospitalist Progress Note - Encounter Date of Encounter: 07/17/19 Time of Encounter: 09:45 - Subjective Interval History: Seen at bedside, feeling good. Denies chest pain, SOB, palpitations. Denies dizziness, orthopnea. No other overnight events. - Exam Vitals: Temp Pulse Resp BP Pulse Ox 97.9 F 65 18 120/74 94 07/17/19 07:53 07/17/19 07:53 07/17/19 07:53 07/17/19 07:53 07/17/19 07:53 Exam: General: Alert and oriented, no physical distress, able to follow commands. HEENT: No thyromegaly, no lymphadenopathy, no discharge. Eyes: No discharge. Normal conjuctiva, no icterus Respiratory: Normal vesicular breathing, no added sounds, breathing equal in b oth sides. CVS: Normal heart sounds, no murmurs, regular rhthm, no edema Extremities: No peripheral edema, peripheral pulses intact. Lymph nodes: No lymphadenopathy Gastrointestinal: Soft, nontender abdomen, normal abdominal sounds. No distention noted. Genitourinary: No paravertebral tenderness. Skin: No rash, ulcers or wound. Neurological: Alert and oriented. No focal deficits. Cranial nerves II-XII intact. - Assessment and Plan (1) Ventricular tachycardia Current Visit: Yes Status: Acute Assessment and Plan: Interrogation of AICD showed ventricular tachycardia. Initially tried to pace but then it fired. Troponin within normal limits. Potassium of 4.2 tody, magnesium of 2.2. Troponin WNL x 2 Cardiolgoy consult was placed. Pt has been started on amiodarone. Telemetry (2) AICD (automatic cardioverter/defibrillator) present Current Visit: Yes Status: Acute Assessment and Plan: Was placed in jul 2018, first event today No prvious complications or concerns (3) Ischemic cardiomyopathy Current Visit: No Status: Acute Assessment and Plan: Most recent echo was in 2017 which showed reduced ejection fraction of 40-45% with mild global left ventricular systolic dysfunction and moderate left ventricular diastolic dysfunction. Repeat echocardiogram dated 07/17/2019 showed ejection fraction of 30-35%, mild left ventricular diastolic dysfunction, left ventricular wall motion abnormalities. Patient is currently on Lasix at home. We will continue. Continue metoprolol and losartan (4) CAD (coronary artery disease) Current Visit: No Status: Chronic Assessment and Plan: History of CAD, status post multiple stents back in 2007. Cardiac catheter from 08/07/2018 showed severe one-vessel coronary artery disease, occluded left circumflex with collateral and contralateral collaterals, no interventions were done. Currently on maximal medical therapy with aspirin, Plavix, metoprolol, losartan. No signs of acute ACS. Continue the current medications. (5) PAD (peripheral artery disease) Current Visit: No Status: Chronic Assessment and Plan: Status post bilateral bypass surgery. Continue medical management. (6) HTN (hypertension) Current Visit: No Status: Acute Assessment and Plan: Blood pressure stable. Continue home medications. (7) Hypokalemia Current Visit: Yes Status: Acute Assessment and Plan: K of 3.4 at admission, Was given 40meq x 2 , with 4.2 in the morning. COnsidering the pt is on lasix, might need lasix on daily basis. WIll repeat potasium levels tomorrow - Time Spent with Patient Total time spent is greater than 50% in coordination of care (as documented) at patient's floor/unit and/or counseling patient: Internal Medicine: Result - Labs CBC & Chem 7: 07/17/19 04:51 07/17/19 04:51 Labs: Short CBC 07/16/19 07/17/19 Range/Units 16:14 04:51 WBC 10.7 9.5 (4.3-11.1) K/mcL Hgb 16.0 15.6 (12.9-16.9) g/dL Hct 47.0 47.1 (37.5-50.1) % Plt Count 195 173 (140-400) K/mcL Neutrophils # 4.9 4.1 (1.6-8.9) K/mcL BMP 07/16/19 07/17/19 16:14 04:51 Sodium 140 140 Potassium 3.4 L 4.3 D Chloride 105 106 Carbon Dioxide 26 27 BUN 15 18 Creatinine 1.49 H 1.35 H Glucose 148 H 117 H Calcium 9.5 9.7 Cardiac Enzymes 07/16/19 07/16/19 Range/Units 16:14 22:20 Troponin I 0.03 0.03 (< 0.04) ng/mL - ABG Interpretation ABG results: PT/INR, D-dimer PT 12.4 Seconds (9.4-12.1) H 07/16/19 16:04 - Impressions Impressions Chest X-Ray 07/16/19 16:32 IMPRESSION: No acute process. Stable AICD/pacer device. D/ / Eugene Ackerman MD / Eugene Ackerman MD Interpreting Provider: Eugene Ackerman MD Echocardiogram 07/17/19 11:59 Impressions: LVEF 30-35%. Mild left ventricular diastolic dysfunction. No significant valvular dysfunction. Left Ventricular Wall Motion: Rest Echo Findings The apical inferior, basal inferior, apical septal, basal inferior septal, apical lateral, mid anterior lateral, basal anterior lateral, mid anterior septal, mid inferior lateral, basal anterior septal and basal inferior lateral ritter were hypokinetic. The mid inferior and mid inferior septal ritter were akinetic. All other wall segments showed normal motion. Findings: Study Quality * Technically sub-optimal due to COPD. Right Ventricle * Normal right ventricular structure and function. Aorta * Normally sized aortic root. Pericardium * The pericardium appears normal. ECG Findings * Normal sinus rhythm. Tricuspid Valve * Trace tricuspid regurgitation. * No tricuspid stenosis. * Estimated RVSP is 31 mmHg. Pulmonic Valve * No pulmonic regurgitation. * No pulmonic stenosis. * Pulmonic valve is not well visualized. Aortic Valve * No aortic stenosis. * No aortic regurgitation. * Probably trileaflet aortic valve. Mitral Valve * Normal mitral valve structure. * No mitral stenosis. * Mild mitral regurgitation. Left Ventricle * Mild left ventricular diastolic dysfunction. * LVEF 30-35%. Device lead * A device lead was visualized in the right atrium and right ventricle. Right Atrium * Right atrium is not well visualized. Left Atrium * Left atrium is not well visualized. Interatrial Septum * Interatrial septum not well evaluated. IVC * Normal IVC dimensions and inspiratory collapse. Consult Discharge Plan - Plan [facility]errals: [facility] [Primary Care Provider] - (4) CAD (coronary artery disease) Qualifiers: Coronary Disease-Associated Artery/Lesion type: unspecified vessel or lesion type [place] vs. transplanted heart: [place] heart Associated angina: without angina Qualified Code(s): I25.10 - Atherosclerotic heart disease of [place] coronary artery without angina pectoris (6) HTN (hypertension) Qualifiers: Hypertension type: essential hypertension Qualified Code(s): I10 - Essential (primary) hypertension
[2019-07-17] MEDS: *HR* Amiodarone 200 MG TABLET PO SCH ×2 (14:13→21:46)
--- NOTE | 2019-07-17 17:28 | Electrocardiograph Report ---
[address] [address] Test Date: 2019-07-16 Pat Name: Leonard Nj Department: EXAM9 Room: 2NE24 Gender: M Retail Maintenance Technician: : 1945 Requested By: Adolph Swartz Order Number: [id number] Reading MD: Yuriy Garcia Measurements Intervals [place] Rate: 84 P: [place]: 163 QRS: -25 QRSD: 122 T: -87 QT: 391 QTc: 431 Interpretive Statements Atrial-paced complexes Multiform ventricular premature complexes Nonspecific intraventricular conduction delay Inferior infarct, age indeterminate Electronically Signed On 07-17-2019 17:26:54 EDT by Yuriy Garcia
[2019-07-17] MEDS: Famotidine 20 MG TABLET PO SCH (21:46)
[2019-07-18 06:28] LABS: BUN/Creatinine Ratio 18 (6-26); Blood Urea Nitrogen 23 mg/dL (8-23); Calcium 9.4 mg/dL (8.6-10.3); Carbon Dioxide 24 mEq/L (23-29); Chloride 107 mEq/L (98-107); Glucose 111 mg/dL (70-105); Magnesium 2.2 mg/dL (1.6-2.6); Osmolality,Calculated 296 (280-300); Sodium 141 mEq/L (136-145); eGFR For African Americans > 60 (> 60); eGFR For Non-African Americans 56 (> 60)
[2019-07-18] MEDS: *HR* Heparin 5,000 UNIT/ML VIAL SQ SCH ×2 (07:58→17:11)
[2019-07-18] MEDS: Metoprolol XL (24 HR) Succ 25 MG TAB.ER.24H PO SCH (07:58)
[2019-07-18] MEDS: Furosemide 20 MG TABLET PO SCH (07:58)
[2019-07-18] MEDS: Aspirin Enteric Coated 81 MG Tablet PO SCH (07:58)
[2019-07-18] MEDS: Isosorbide MONOnitrate (24 HR) 60 MG TAB.ER.24H PO SCH (07:58)
[2019-07-18] MEDS: amLODIPine 5 MG TABLET PO SCH (07:58)
[2019-07-18] MEDS: *HR* Amiodarone 200 MG TABLET PO SCH ×2 (10:15→21:45)
--- NOTE | 2019-07-18 11:07 | Electrophysiology ProgressNote ---
Date of Encounter: 07/18/19 Time of Encounter: 10:30 Assessment and Plan (1) Ventricular tachycardia Current Visit: Yes Status: Acute Patient presented to the ED s/p ICD shock for VT. Successful ATP on 07/07 and 07/08--pt. asymptomatic. Reviewed device check with Dr. Kilgore, appropriate shock for VT. Upon arrival K was 3.4. Replaced. Keep K >4.0, Mg >2.0. Continue BB, Toprol XL. TTE shows mildly reduced LVEF, 30-35%. Prior TTE 45%. Continue medical therapy for now, CAD not amendable to PCI upon last [facility] . Most recent [facility] 07/2018--known obstructive CAD, medical therapy recommended. 3 beat NSVT overnight. Recommend additional 24 hours as inpatient for oral amiodarone load. Okay to d/c in AM if no stable and no events overnight. Discussed with Dr. Kilgore; will start Amiodarone 400 mg BID as inpatient; decrease Amiodarone to 400 mg daily upon discharge. Follow-up in the outpatient setting, will likely decrease to 200 mg daily after 1 month. (2) AICD (automatic cardioverter/defibrillator) present Current Visit: Yes Status: Acute as above (3) Ischemic cardiomyopathy Current Visit: No Status: Acute Known hx of ICMP s/p ICD. Last TTE demonstrated LVEF 45%. Appears euvolemic upon exam. Continue GDMT including Toprol XL and Losartan. Discussion w patient/family: The assessment and plan as outlined above was discussed with the patient and/or family members who expressed understanding and agreement. All questions were answered. Thank you for involving us in the care of your patient. Please call with any questions. The patient will be discussed and reviewed with Dr. Kilgore; changes to be made accordingly. Subjective Principal diagnosis: VT Interval history: Seen and examined. No new CV complaints overnight. No chest pain/discomfort. No ICD shocks Objective Vital Signs, Last 4 Hours Temp Pulse Resp BP Pulse Ox 07/18/19 07:53 98 F 62 18 133/81 99 General: Conversant, No Apparent Distress HEENT: Atraumatic, Normocephaly, Mucus Membranes Moist Neck: No JVD, Normal carotid pulses Cardiac: Reg Rate and Rhythm, Normal S1 and S2, No Murmur Lungs: Normal Breath Sounds, No Wheeze, Rales, Rhonchi Neuro: Alert and responsive, No focal deficits noted Abdomen: Soft, Non-Tender Skin: No rashes noted on visualized skin Musculoskeletal: No Chest Wall Tenderness Extremities: No Clubbing, No Cyanosis, No Edema, Normal Pulses Results 07/17/19 04:51 07/18/19 05:15 Lab Results 07/18/19 05:15 Sodium 141 Potassium 4.0 Chloride 107 Carbon Dioxide 24 BUN 23 Creatinine 1.27 Glucose 111 H Calcium 9.4 Magnesium 2.2 Active Medications Amiodarone HCl (Cordarone) 400 mg PO BID [facility] Stop: 01/16/20 09:01 Last Admin: 07/18/19 10:15 Dose: 400 mg Documented by: Amlodipine Besylate (Norvasc) 10 mg PO DAILY [facility]; Protocol Stop: 01/16/20 09:01 Last Admin: 07/18/19 07:58 Dose: 10 mg Documented by: Aspirin (Aspirin Ec) 81 mg PO DAILY [facility] Stop: 01/16/20 09:01 Last Admin: 07/18/19 07:58 Dose: 81 mg Documented by: Atorvastatin Calcium (Lipitor) 80 mg PO [facility] Stop: 01/15/20 21:01 Last Admin: 07/17/19 21:46 Dose: 80 mg Documented by: Clopidogrel Bisulfate (Plavix) 75 mg PO DAILY [facility] Stop: 01/16/20 09:01 Last Admin: 07/18/19 07:58 Dose: 75 mg Documented by: Famotidine (Pepcid) 20 mg PO [facility] Stop: 01/15/20 21:01 Last Admin: 07/17/19 21:46 Dose: 20 mg Documented by: Furosemide (Lasix) 40 mg PO DAILY [facility] Stop: 01/16/20 09:01 Last Admin: 07/18/19 07:58 Dose: 40 mg Documented by: Heparin Sodium (Porcine) (Heparin) 5,000 unit SQ Q12HCO [facility]; Protocol Stop: 01/16/20 06:01 Last Admin: 07/18/19 07:58 Dose: 5,000 unit Documented by: Isosorbide Mononitrate (Imdur) 60 mg PO DAILY [facility] Stop: 01/16/20 09:01 Last Admin: 07/18/19 07:58 Dose: 60 mg Documented by: Losartan Potassium (Cozaar) 25 mg PO DAILY [facility]; Protocol Stop: 01/16/20 09:01 Last Admin: 07/18/19 07:58 Dose: 25 mg Documented by: Metoprolol Succinate (Toprol Xl) 25 mg PO DAILY [facility] Stop: 01/16/20 09:01 Last Admin: 07/18/19 07:58 Dose: 25 mg Documented by: Naloxone HCl (Narcan) 0.4 mg IVP Q2MPRN PRN PRN Reason: SEE COMMENTS Stop: 01/15/20 18:12 - Imaging and Cardiology Echo: report reviewed Other Results: 12 hour tele: avg HR=67 SR. Brief episode of SVT noted. 3 beat NSVT - EKG Interpretation EKG results cardiology: personally reviewed Consult Discharge Plan - Plan Referrals: [facility] [Primary Care Provider] -
--- NOTE | 2019-07-18 13:16 | Internal Med Progress Note ---
Hospitalist Progress Note - Encounter Date of Encounter: 07/18/19 Time of Encounter: 09:55 - Subjective Interval History: Patient seen at bedside. Denies chest pain, shortness of breath, palpitations. Denies fever, chills, rigors. No acute event overnight. 3 beat NSVT overnight. - Exam Vitals: Temp Pulse Resp BP Pulse Ox 98.1 F 60 16 115/73 98 07/18/19 12:00 07/18/19 12:00 07/18/19 12:00 07/18/19 12:00 07/18/19 12:00 Exam: General: Alert and oriented, no physical distress, able to follow commands. Respiratory: Normal vesicular breathing, no added sounds, breathing equal in both sides. CVS: Normal heart sounds, no murmurs, regular rhthm, no edema Extremities: No peripheral edema, peripheral pulses intact. Gastrointestinal: Soft, nontender abdomen, normal abdominal sounds. No distention noted. Genitourinary: No paravertebral tenderness. Skin: No rash, ulcers or wound. Neurological: Alert and oriented. No focal deficits. Cranial nerves II-XII intact. - Assessment and Plan (1) Ventricular tachycardia Current Visit: Yes Status: Acute Assessment and Plan: Interrogation of AICD showed ventricular tachycardia. Initially tried to pace but then it fired. Troponin within normal limits. Potassium of 4.0 tody, magnesium of 2.2. Troponin WNL x 2 3 more beats of NSVT overnight Cardiolgoy consult was placed. Pt has been started on amiodarone. Telemetry Likely discharge tomorrow with amiodarone. Patient needs to be kept in the hospital for amiodarone loading. (2) AICD (automatic cardioverter/defibrillator) present Current Visit: Yes Status: Acute Assessment and Plan: Was placed in jul 2018, first event before this admission No prvious complications or concerns (3) Ischemic cardiomyopathy Current Visit: No Status: Acute Assessment and Plan: Echo was in 2017 which showed reduced ejection fraction of 40-45% with mild global left ventricular systolic dysfunction and moderate left ventricular diastolic dysfunction. Repeat echocardiogram dated 07/17/2019 showed ejection fraction of 30-35%, mild l eft ventricular diastolic dysfunction, left ventricular wall motion abnormalities. Patient is currently on Lasix at home. We will continue. Continue metoprolol and losartan (4) CAD (coronary artery disease) Current Visit: No Status: Chronic Assessment and Plan: History of CAD, status post multiple stents back in 2007. Cardiac catheter from 08/07/2018 showed severe one-vessel coronary artery disease, occluded left circumflex with collateral and contralateral collaterals, no interventions were done. Currently on maximal medical therapy with aspirin, Plavix, metoprolol, losartan. No signs of acute ACS. Continue the current medications. (5) PAD (peripheral artery disease) Current Visit: No Status: Chronic Assessment and Plan: Status post bilateral bypass surgery. Continue medical management. (6) HTN (hypertension) Current Visit: No Status: Acute Assessment and Plan: Blood pressure stable. Continue home medications. (7) Hypokalemia Current Visit: Yes Status: Acute Assessment and Plan: Resolved K of 4.0 today - Time Spent with Patient Total time spent is greater than 50% in coordination of care (as documented) at patient's floor/unit and/or counseling patient: Internal Medicine: Result - Labs CBC & Chem 7: 07/17/19 04:51 07/18/19 05:15 Labs: BMP 07/18/19 05:15 Sodium 141 Potassium 4.0 Chloride 107 Carbon Dioxide 24 BUN 23 Creatinine 1.27 Glucose 111 H Calcium 9.4 - ABG Interpretation ABG results: PT/INR, D-dimer PT 12.4 Seconds (9.4-12.1) H 07/16/19 16:04 Consult Discharge Plan - Plan [facility]errals: [facility] [Primary Care Provider] - (4) CAD (coronary artery disease) Qualifiers: Coronary Disease-Associated Artery/Lesion type: unspecified vessel or lesion t [place] vs. transplanted heart: [place] heart Associated angina: without angina Qualified Code(s): I25.10 - Atherosclerotic heart disease of [place] coronary artery without angina pectoris (6) HTN (hypertension) Qualifiers: Hypertension type: essential hypertension Qualified Code(s): I10 - Essential (primary) hypertension
[2019-07-18] MEDS: Famotidine 20 MG TABLET PO SCH (21:45)
[2019-07-19] MEDS: *HR* Heparin 5,000 UNIT/ML VIAL SQ SCH (06:16)
--- NOTE | 2019-07-19 08:23 | Event Note ---
Date of Encounter: 07/19/19 Time of Encounter: 08:22 - Cardiology Event Note No VT noted overnight on telemetry. On Amiodarone 400 mg BID as inpatient; decrease Amiodarone to 400 mg daily upon discharge. Follow-up in the outpatient setting, will likely decrease to 200 mg daily after 1 month. Will coordinate outpt f/up in 2-3 weeks. Cardiology signing off. Reconsult PRN.
--- NOTE | 2019-07-19 09:10 | Discharge Summary ---
- NOTES TO OUTPATIENT PROVIDER Notes to Outpatient Provider: Came after AICD firing, had v.tach on interrogation, was started on amiodarone, being discharged on 400 mg daily for 1 monthm then 200mg daily. Follow up wiht the cardiolgoy recommended. Date of Encounter: 07/19/19 Time of Encounter: 09:00 - Discharge Diagnosis (1) Ventricular tachycardia Priority: Primary Status: Acute (2) AICD (automatic cardioverter/defibrillator) present Priority: Secondary Status: Acute (3) Ischemic cardiomyopathy Priority: Secondary Status: Acute (4) CAD (coronary artery disease) Priority: Secondary Status: Chronic Qualifiers: Coronary Disease-Associated Artery/Lesion type: unspecified vessel or lesion type [place] vs. transplanted heart: [place] heart Associated angina: without angina Qualified Code(s): I25.10 - Atherosclerotic heart disease of [place] coronary artery without angina pectoris (5) PAD (peripheral artery disease) Priority: Secondary Status: Chronic (6) HTN (hypertension) Priority: Secondary Status: Acute Qualifiers: Hypertension type: essential hypertension Qualified Code(s): I10 - Essential (primary) hypertension (7) Hypokalemia Priority: Secondary Status: Acute Hospital course: Mr. Nj is a 73 year old male with a past medical history significant for ischemic cardiomyopathy status post AICD placement , presented to the hospital after his AICD fired. Interrogation of AICD showed ventricular tachycardia. Cardiology was consulted, started the patient on amiodarone 400 mg twice a day. Patient has been toelraiting the medications. No NSVT overnight. TO be sicharged on 400 mg of amiodarone daily for 30 days then 200 mg daily. advised to follow up with quality improvement specialist nad the PCP. Advised to eat potassium conataining foods. Is discharged in stable condition, - Time Spent with Patient Total time spent providing and/or coordinating discharge services: 25 minutes - Discharge Medications Prescriptions: New Amiodarone HCl 400 mg PO DAILY #30 tablet Continued amLODIPine [Norvasc] 10 mg PO DAILY Clopidogrel [Plavix] 75 mg PO DAILY Ranitidine HCl [Heartburn Relief] 150 mg PO HS Isosorbide MONOnitrate (24 HR) [Imdur] 60 mg PO DAILY Losartan [Cozaar] 25 mg PO DAILY Metoprolol XL (24 HR) Succ [Toprol Xl] 25 mg PO DAILY 30 Days #30 tab.er.24h Furosemide [Lasix] 40 mg PO DAILY 30 Days #30 tab Atorvastatin Calcium 80 mg PO HS Aspirin Enteric Coated [Aspirin EC] 81 mg PO DAILY Home Medications: Clopidogrel [Plavix] 75 mg PO DAILY 08/07/18 [History] Isosorbide MONOnitrate (24 HR) [Imdur] 60 mg PO DAILY 08/07/18 [History] Losartan [Cozaar] 25 mg PO DAILY 08/07/18 [History] Ranitidine HCl [Heartburn Relief] 150 mg PO HS 08/07/18 [History] amLODIPine [Norvasc] 10 mg PO DAILY 08/07/18 [History] Furosemide [Lasix] 40 mg PO DAILY 30 Days #30 tab 08/11/18 [Rx] Metoprolol XL (24 HR) Succ [Toprol Xl] 25 mg PO DAILY 30 Days #30 tab.er.24h 08/11/18 [Rx] Atorvastatin Calcium 80 mg PO HS 10/10/18 [History] Aspirin Enteric Coated [Aspirin EC] 81 mg PO DAILY 06/17/19 [History] Amiodarone HCl 400 mg PO DAILY #30 tablet 07/19/19 [Rx] Allergies/Adverse Reactions: Allergy/AdvReac Type Severity Reaction Status Date / Time No Known Allergies Allergy Verified 06/17/19 07:00 Date of admission: 07/18/19 15:49 Primary care physician: PCP ND Consults: 07/16/19 17:55 Consult to Cardiology [CONS] Stat Comment: Consulting Provider: Cardiology [place] Reason for Consult: hypokalemia w/ AICD, v-tach Time Notified: 17:55 Call Completed: Yes - Constitutional Vitals: Temp Pulse Resp BP Pulse Ox 98 F 60 16 125/77 97 07/19/19 06:50 07/19/19 06:50 07/19/19 06:50 07/19/19 06:50 07/19/19 06:50 Exam: General: Alert and oriented, no physical distress, able to follow commands. Respiratory: Normal vesicular breathing, no added sounds, breathing equal in both sides. CVS: Normal heart sounds, no murmurs, regular rhthm, no edema Extremities: No peripheral edema, peripheral pulses intact. Gastrointestinal: Soft, nontender abdomen, normal abdominal sounds. No distention noted. Genitourinary: No paravertebral tenderness. Skin: No rash, ulcers or wound. Neurological: Alert and oriented. No focal deficits. Cranial nerves II-XII intact. - Patient Status Disposition: Home, Self-Care Condition: Good Functional capacity at discharge: independent ambulation Overall status at discharge: patient is back to baseline - Discharge Instructions Follow Up With: [facility] [Primary Care Provider] - Forms: ED Satisfaction Letter - Diet and Activity Activity: increase activity as tolerated Diet: advance to your usual diet
[2019-07-19] MEDS: *HR* Amiodarone 200 MG TABLET PO SCH (10:13)
[2019-07-19] MEDS: Isosorbide MONOnitrate (24 HR) 60 MG TAB.ER.24H PO SCH (10:13)
[2019-07-19] MEDS: amLODIPine 5 MG TABLET PO SCH (10:13)
[2019-07-19] MEDS: Furosemide 20 MG TABLET PO SCH (10:13)
[2019-07-19] MEDS: Aspirin Enteric Coated 81 MG Tablet PO SCH (10:13)
[2019-07-19] MEDS: Metoprolol XL (24 HR) Succ 25 MG TAB.ER.24H PO SCH (10:14)
[2019-07-19 10:21] VITALS: BP 130/82
== END 2019-07-19 11:18 | disposition home or self-care (01) | DRG 310 ==
LOC: 2NENU 16:00 → EMEROOARM 16:00 → SUATTDRO 18:16 → 2NENU 18:57
PROVIDERS: ADMIT Internal Medicine; ATTEND Internal Medicine